=== PATIENT | male | born 1985 | race Caucasian/White ===

== ENCOUNTER 2016-09-14 11:05 | Inpatient (IN) | payer MEDICAID ==
[~2016-09-14] VITALS: Ht 193 cm; Wt 67.3 kg
[~2016-09-14 11:05] MED LIST: HUMALOG SC; INSUINJ37 SC
[2016-09-14] MEDS ORDERED: SODIUM CHLORIDE 0.9% 1,000 ML IVB ONE (11:13)
[2016-09-14] MEDS ORDERED: DEXTROSE (50%) 50ML SYRG IV PRN (11:15)
[2016-09-14] MEDS: ACCU-CHEK COMFORT CURVE STRIP VI SCH ×12 (11:27→23:11)
[2016-09-14] MEDS: InsuLIN R (HUMAN) 100 UNITS in SODIUM CHL 0.9% 99 ML IV SCH (12:01)
[2016-09-14] MEDS ORDERED: SODIUM CHLORIDE 0.9% 1,000 ML IV ONE ×3 (12:15→17:15)
[2016-09-14] MEDS ORDERED: EPOETIN ALFA 3,000 UNIT/1 ML VIAL IV ONE (12:15)
[2016-09-14 12:27] LABS: Hematocrit 48.8 % (41.0-53.0); Hemoglobin 15.7 g/dL (13.5-17.5); Mean Corpuscular Hemoglobin 29.9 pg (28.0-32.0); Mean Corpuscular Hgb Conc. 32.2 g/dL (32.0-36.0); Mean Corpuscular Volume 92.8 fL (80.0-100.0); Mean Platelet Volume 8.5 fL (7.4-10.4); Platelet Count (auto) 345 10^3/uL (140-450); Red Cell Distribution Width 12.7 % (11.6-16.0); SUSPECT VIEW TRANSMISSION; White Blood Cell 21.4 10^3/uL (4.4-10.8)
[2016-09-14 12:44] LABS: Metamyelocytes % 0; Myelocytes % 0; Promyelocytes % 0; Reactive Lymphocytes 0
[2016-09-14 12:45] LABS: Albumin 3.6 g/dL (3.4-5.0); Calcium 9.3 mg/dL (8.5-10.1); Potassium 5.2 mmol/L (3.5-5.1)
[2016-09-14 12:50] LABS: BUN/Creatinine Ratio 29.6; Bilirubin, Total 0.4 mg/dL (0.2-1.0); Magnesium 3.5 mg/dL (1.6-2.6); Total Protein 7.3 g/dL (6.4-8.2)
[2016-09-14 13:04] LABS: Platelet Estimate Adequate; RBC Morphology Normal
[2016-09-14 14:05] LABS: Urine RBC None Seen /hpf (0 - 3)
[2016-09-14 14:38] LABS: Urine Bilirubin Negative (Negative); Urine Color Yellow (Yellow); Urine Nitrite Negative (Negative); Urine Squamous Epithelial Cell FEW /hpf (<5); Urine Urobilinogen Normal (Negative)
[2016-09-14] MEDS ORDERED: SODIUM BICARBONATE 8.4 % INJ 50ML VIAL IV ONE ×2 (14:45)
[2016-09-14 14:46] LABS: Urine Blood 2+ /uL (Negative); Urine Glucose 4+ mg/dL (Normal); Urine Ketone 3+ (Negative)
[2016-09-14] MEDS ORDERED: ONDANSETRON HCL 4 MG/2 ML VIAL IV ONE (15:00)
[2016-09-14] MEDS ORDERED: ACETAMINOPHEN 325 MG TAB PO ONE ×2 (16:58→17:00)
[2016-09-14] MEDS ORDERED: cefTRIAXone 1GM/50ML D5W 50 ML IV ONE (18:00)
[2016-09-14] MEDS ORDERED: VANCOMYCIN PER PHARMACY 0 MG IV SCH (18:00)
[2016-09-14] MEDS ORDERED: NITROGLYCERIN 0.4 MG SL TAB SL PRN (18:00)
[2016-09-14] MEDS ORDERED: TEMAZEPAM 15 MG CAP PO PRN (18:00)
[2016-09-14] MEDS ORDERED: DILTIAZEM 125mg/125ml BAG KIT 125 ML IV SCH (18:00)
[2016-09-14] MEDS ORDERED: DILTIAZEM HCL 25 MG/5 ML VIAL IV ONE (18:00)
[2016-09-14] MEDS ORDERED: DOCUSATE SOD 100 MG CAP PO PRN (18:00)
[2016-09-14] MEDS ORDERED: ACETAMINOPHEN 325 MG TAB PO PRN (18:00)
[2016-09-14] MEDS ORDERED: ONDANSETRON HCL 4 MG/2 ML VIAL IV PRN (18:00)
[2016-09-14] MEDS ORDERED: MORPHINE SULF INJ 2 MG/ML SYRINGE 1ML IV PRN (18:00)
[2016-09-14] MEDS: MULTIPLE VITAMIN TAB PO SCH (18:53)
[2016-09-14] MEDS ORDERED: VANCOMYCIN 1GM/250ML D5W 250 ML IV ONE (20:00)
[2016-09-14] MEDS: FAMOTIDINE 20 MG TAB PO SCH (22:16)
[2016-09-15] VITALS: BP 120/83
[2016-09-15] MEDS: ACCU-CHEK COMFORT CURVE STRIP VI SCH ×24 (00:09→23:30)
[2016-09-15] MEDS ORDERED: D5W/SOD CHLO 0.9% 1,000 ML IV ONE (00:30)
[2016-09-15 01:36] LABS: Albumin 2.7 g/dL (3.4-5.0); BUN/Creatinine Ratio 35.7; Calcium 8.5 mg/dL (8.5-10.1); Potassium 3.1 mmol/L (3.5-5.1)
[2016-09-15 01:39] LABS: Bilirubin, Total 0.3 mg/dL (0.2-1.0); Total Protein 5.8 g/dL (6.4-8.2)
[2016-09-15] MEDS ORDERED: POTASSIUM CHL 20 Meq TABLET PO ONE ×2 (03:00→13:00)
[2016-09-15] MEDS ORDERED: POTASSIUM CHL 20MEQ/100ML 100 ML IV ONE (03:30)
[2016-09-15 04:11] LABS: SUSPECT VIEW TRANSMISSION
[2016-09-15 04:17] LABS: Hematocrit 42.8 % (41.0-53.0); Hemoglobin 14.9 g/dL (13.5-17.5); Mean Corpuscular Hemoglobin 30.3 pg (28.0-32.0); Mean Corpuscular Hgb Conc. 34.8 g/dL (32.0-36.0); Mean Corpuscular Volume 87.1 fL (80.0-100.0); Mean Platelet Volume 8.1 fL (7.4-10.4); Platelet Count (auto) 142 10^3/uL (140-450); Red Cell Distribution Width 12.8 % (11.6-16.0); White Blood Cell 9.1 10^3/uL (4.4-10.8)
[2016-09-15 04:21] LABS: Metamyelocytes % 0; Myelocytes % 0; Promyelocytes % 0; Reactive Lymphocytes 0
[2016-09-15 04:33] LABS: Albumin 2.8 g/dL (3.4-5.0); BUN/Creatinine Ratio 31.7; Calcium 8.4 mg/dL (8.5-10.1); Potassium 3.6 mmol/L (3.5-5.1)
[2016-09-15 04:41] LABS: Bilirubin, Total 0.3 mg/dL (0.2-1.0); Total Protein 6.1 g/dL (6.4-8.2)
[2016-09-15 05:09] LABS: Platelet Estimate Adequate; RBC Morphology Normal
[2016-09-15 07:40] LABS: Albumin 2.6 g/dL (3.4-5.0); Potassium 3.1 mmol/L (3.5-5.1)
[2016-09-15 07:44] LABS: BUN/Creatinine Ratio 34.4; Bilirubin, Total 0.2 mg/dL (0.2-1.0); Total Protein 5.6 g/dL (6.4-8.2)
[2016-09-15] MEDS: InsuLIN R (HUMAN) 100 UNITS in SODIUM CHL 0.9% 99 ML IV SCH ×6 (08:08→22:28)
[2016-09-15] MEDS: SODIUM CHLORIDE 0.9% 1,000 ML IV SCH ×5 (09:00→23:36)
[2016-09-15] MEDS: cefTRIAXone 1GM/50ML D5W 50 ML IV SCH (09:13)
[2016-09-15] MEDS: MULTIPLE VITAMIN TAB PO SCH (09:50)
[2016-09-15] MEDS: FAMOTIDINE 20 MG TAB PO SCH ×2 (09:51→22:44)
[2016-09-15] MEDS ORDERED: VANCOMYCIN 750 MG in D5W 5% 250 ML IV SCH (10:00)
[2016-09-15] MEDS: ENOXAPARIN SOD 60 MG/0.6 ML SYRINGE SC SCH ×2 (10:17→22:44)
[2016-09-15] MEDS: ASPirin 81 mg TAB PO SCH (10:31)
[2016-09-15] MEDS: POTASSIUM CHL 20MEQ/100ML 100 ML IV SCH ×4 (15:56→21:48)
[2016-09-15 16:35] LABS: BUN/Creatinine Ratio 29.1; Calcium 7.7 mg/dL (8.5-10.1)
[2016-09-15 16:37] LABS: Potassium 2.8 mmol/L (3.5-5.1)
[2016-09-15 18:15] VITALS: BP 130/71
[2016-09-15 18:27] VITALS: BP 130/71
[2016-09-15 20:00] VITALS: BP 117/62
[2016-09-15] MEDS: ATORVASTATIN 20 MG TAB PO SCH (22:44)
[2016-09-16] MEDS: ACCU-CHEK COMFORT CURVE STRIP VI SCH ×24 (00:30→23:04)
[2016-09-16 01:27] LABS: BUN/Creatinine Ratio 22.9; Calcium 7.8 mg/dL (8.5-10.1); Potassium 3.1 mmol/L (3.5-5.1)
[2016-09-16 01:47] LABS: Phosphorus 0.3 mg/dL (2.6-4.90)
[2016-09-16] MEDS ORDERED: NEUTRA-PHOS TABLET PO ONE (02:45)
[2016-09-16] MEDS ORDERED: POTASSIUM CHL 20MEQ/100ML 100 ML IV ONE ×2 (03:00→05:00)
[2016-09-16] MEDS: SODIUM CHLORIDE 0.9% 1,000 ML IV SCH ×5 (03:28→21:00)
[2016-09-16 04:13] VITALS: BP 125/74
[2016-09-16] MEDS ORDERED: POTASSIUM PHOSPHATE 22 MEQ in SODIUM CHL 0.9% 100 ML IV ONE (06:30)
[2016-09-16 08:00] VITALS: BP 132/83
[2016-09-16 09:41] LABS: Basophils # (auto) 0 uL; Basophils % (auto) 0.3 % (0.0-2.0); Eosinophils # (auto) 0 uL; Eosinophils % (auto) 0.2 % (0.0-7.0); Hematocrit 32.6 % (41.0-53.0); Lymphocytes # (auto) 0.8 uL; Lymphocytes % (auto) 17.2 % (10.0-50.0); Mean Corpuscular Hemoglobin 29.6 pg (28.0-32.0); Mean Corpuscular Hgb Conc. 33.6 g/dL (32.0-36.0); Mean Corpuscular Volume 88.1 fL (80.0-100.0); Mean Platelet Volume 7.2 fL (7.4-10.4); Monocytes # (auto) 0.3 uL; Monocytes % (auto) 6.7 % (0.0-12.0); Neutrophils # (auto) 3.4 uL; Neutrophils % (auto) 75.6 % (37.0-80.0); Platelet Count (auto) 129 10^3/uL (140-450); Red Cell Distribution Width 12.8 % (11.6-16.0); White Blood Cell 4.5 10^3/uL (4.4-10.8)
[2016-09-16] MEDS: ENOXAPARIN SOD 80 MG/0.8ML SYRINGE SC SCH ×2 (10:00→22:00)
[2016-09-16 10:06] LABS: Albumin 2.2 g/dL (3.4-5.0); BUN/Creatinine Ratio 25.3; Bilirubin, Total 0.5 mg/dL (0.2-1.0); Calcium 7.5 mg/dL (8.5-10.1); Magnesium 1.8 mg/dL (1.6-2.6); Total Protein 5.2 g/dL (6.4-8.2)
[2016-09-16 10:20] LABS: Phosphorus 0.8 mg/dL (2.6-4.90); Potassium 2.8 mmol/L (3.5-5.1)
[2016-09-16] MEDS: FAMOTIDINE 20 MG TAB PO SCH ×2 (10:37→22:59)
[2016-09-16] MEDS: MULTIPLE VITAMIN TAB PO SCH (10:37)
[2016-09-16] MEDS: ASPirin 81 mg TAB PO SCH (10:37)
[2016-09-16 12:00] VITALS: BP 125/73
[2016-09-16] MEDS: cefTRIAXone 1GM/50ML D5W 50 ML IV SCH (12:00)
[2016-09-16] MEDS: HYDROcodone-ACET 5/325MG TAB PO PRN (13:30)
[2016-09-16] MEDS ORDERED: SPIRONOLACTONE 25 MG TAB PO ONE (13:30)
[2016-09-16 14:25] LABS: BUN/Creatinine Ratio 25.7; Calcium 7.4 mg/dL (8.5-10.1)
[2016-09-16 14:50] LABS: Phosphorus 0.9 mg/dL (2.6-4.90); Potassium 2.8 mmol/L (3.5-5.1)
[2016-09-16 16:00] VITALS: BP 124/87
[2016-09-16] MEDS ORDERED: SODIUM PHOSPHATES 20 MEQ in SODIUM CHL 0.9% 100 ML IV ONE (16:00)
[2016-09-16] MEDS: MORPHINE SULF INJ 2 MG/ML SYRINGE 1ML IV PRN ×2 (16:26→20:26)
[2016-09-16] MEDS: POTASSIUM CHLORIDE 40 MEQ, LIDOCAINE 1% (LOCAL ANESTH.) 4 ML in SODIUM CHL 0.9% 250 ML IV SCH ×2 (17:17→20:00)
[2016-09-16 18:23] LABS: BUN/Creatinine Ratio 24.6; Phosphorus 1.4 mg/dL (2.6-4.90); Potassium 3.1 mmol/L (3.5-5.1)
[2016-09-16 20:15] VITALS: BP 135/85
[2016-09-16] MEDS: ATORVASTATIN 20 MG TAB PO SCH (22:59)
[2016-09-17 00:30] VITALS: BP 127/81
[2016-09-17] MEDS: SODIUM CHLORIDE 0.9% 1,000 ML IV SCH ×5 (01:10→17:02)
[2016-09-17] MEDS: ACCU-CHEK COMFORT CURVE STRIP VI SCH ×12 (01:10→22:00)
[2016-09-17 04:29] VITALS: BP 134/85
[2016-09-17] MEDS: MORPHINE SULF INJ 2 MG/ML SYRINGE 1ML IV PRN ×5 (04:58→21:39)
[2016-09-17 05:48] LABS: Basophils # (auto) 0 uL; Basophils % (auto) 0.3 % (0.0-2.0); Eosinophils # (auto) 0 uL; Eosinophils % (auto) 0.8 % (0.0-7.0); Hematocrit 32.3 % (41.0-53.0); Hemoglobin 11.1 g/dL (13.5-17.5); Lymphocytes # (auto) 1.3 uL; Lymphocytes % (auto) 22.5 % (10.0-50.0); Mean Corpuscular Hemoglobin 30.3 pg (28.0-32.0); Mean Corpuscular Hgb Conc. 34.5 g/dL (32.0-36.0); Mean Corpuscular Volume 87.9 fL (80.0-100.0); Mean Platelet Volume 7.1 fL (7.4-10.4); Monocytes # (auto) 0.4 uL; Monocytes % (auto) 7.6 % (0.0-12.0); Neutrophils # (auto) 4.1 uL; Neutrophils % (auto) 68.8 % (37.0-80.0); Platelet Count (auto) 105 10^3/uL (140-450); Red Cell Distribution Width 11.9 % (11.6-16.0); White Blood Cell 5.8 10^3/uL (4.4-10.8)
[2016-09-17 05:52] LABS: Phosphorus 1.3 mg/dL (2.6-4.90); Potassium 3.1 mmol/L (3.5-5.1)
[2016-09-17 08:00] VITALS: BP 129/80
[2016-09-17] MEDS: cefTRIAXone 1GM/50ML D5W 50 ML IV SCH (08:49)
[2016-09-17] MEDS ORDERED: SODIUM PHOSPHATES 20 MEQ in SODIUM CHL 0.9% 100 ML IV ONE (09:15)
[2016-09-17] MEDS ORDERED: DEXTROSE (50%) 50ML SYRG IV PRN (09:15)
[2016-09-17] MEDS ORDERED: INSULIN DETEMIR(LEVEMIR) 1unit/0.01ml Soln (100units/ml) SC ONE (09:15)
[2016-09-17] MEDS: POTASSIUM CHL 20MEQ/100ML 100 ML IV SCH ×3 (09:53→13:59)
[2016-09-17] MEDS: SPIRONOLACTONE 25 MG TAB PO SCH (09:55)
[2016-09-17] MEDS: MULTIPLE VITAMIN TAB PO SCH (09:55)
[2016-09-17] MEDS: ENOXAPARIN SOD 80 MG/0.8ML SYRINGE SC SCH ×2 (09:55→21:39)
[2016-09-17] MEDS: FAMOTIDINE 20 MG TAB PO SCH ×2 (09:55→21:38)
[2016-09-17] MEDS: ASPirin 81 mg TAB PO SCH (09:55)
[2016-09-17] MEDS: InsuLIN REG 1unit/0.01ml Soln (100units/ml) SC SCH ×2 (11:51→18:47)
[2016-09-17] MEDS: HYDROcodone-ACET 5/325MG TAB PO PRN ×2 (11:55→18:49)
[2016-09-17 12:00] VITALS: BP 120/67
[2016-09-17 16:00] VITALS: BP 138/87
[2016-09-17 18:08] LABS: BUN/Creatinine Ratio 21.2; Calcium 8.4 mg/dL (8.5-10.1); Phosphorus 2.2 mg/dL (2.6-4.90); Potassium 3.3 mmol/L (3.5-5.1)
[2016-09-17] MEDS: ATORVASTATIN 20 MG TAB PO SCH (21:38)
[2016-09-17] MEDS ORDERED: InsuLIN REG 1unit/0.01ml Soln (100units/ml) SC SCH (22:00)
[2016-09-17] MEDS: INSULIN DETEMIR(LEVEMIR) 1unit/0.01ml Soln (100units/ml) SC SCH (23:18)
[2016-09-18] VITALS: BP 129/77
[2016-09-18] MEDS: SODIUM CHLORIDE 0.9% 1,000 ML IV SCH ×2 (01:36→09:15)
[2016-09-18] MEDS: MORPHINE SULF INJ 2 MG/ML SYRINGE 1ML IV PRN ×3 (02:12→11:52)
[2016-09-18] MEDS: InsuLIN REG 1unit/0.01ml Soln (100units/ml) SC SCH ×2 (06:51→11:39)
[2016-09-18] MEDS: ACCU-CHEK COMFORT CURVE STRIP VI SCH ×2 (07:01→11:34)
[2016-09-18] MEDS: cefTRIAXone 1GM/50ML D5W 50 ML IV SCH (08:36)
[2016-09-18] MEDS: SPIRONOLACTONE 25 MG TAB PO SCH (08:46)
[2016-09-18] MEDS: ASPirin 81 mg TAB PO SCH (08:46)
[2016-09-18] MEDS: MULTIPLE VITAMIN TAB PO SCH (08:46)
[2016-09-18] MEDS: FAMOTIDINE 20 MG TAB PO SCH (08:46)
[2016-09-18] MEDS: HYDROcodone-ACET 5/325MG TAB PO PRN (08:54)
[2016-09-18 09:00] VITALS: BP 139/89
[2016-09-18] MEDS: ENOXAPARIN SOD 80 MG/0.8ML SYRINGE SC SCH (10:00)
[2016-09-18] MEDS: INSULIN DETEMIR(LEVEMIR) 1unit/0.01ml Soln (100units/ml) SC SCH (10:25)
[2016-09-18 11:02] VITALS: BP 132/52
[2016-09-18 12:14] LABS: BUN/Creatinine Ratio 19.1; Calcium 8.4 mg/dL (8.5-10.1); Potassium 3.1 mmol/L (3.5-5.1)
[2016-09-18 13:00] VITALS: BP 139/87
[2016-09-18] MEDS ORDERED: POTASSIUM CHL 20 Meq TABLET PO ONE (14:30)
[2016-09-18 15:12] VITALS: BP 132/52
== END 2016-09-18 15:12 | disposition home or self-care (01) | DRG 420 ==
LOC: EDBD 11:05 → ER 11:09 → TELE 11:10 → DOU IN ICU 09-15 18:09 → TELE-EAST 09-18 01:30
PROVIDERS: ADMIT Internal Medicine; ATTEND Internal Medicine
DX: E13.10 Other specified diabetes mellitus with ketoacidosis without coma (principal); I21.4 Non-ST elevation (NSTEMI) myocardial infarction; E87.0 Hyperosmolality and hypernatremia; N17.9 Acute kidney failure, unspecified; I48.92 Unspecified atrial flutter; N18.3 Chronic kidney disease, stage 3 (moderate); E87.1 Hypo-osmolality and hyponatremia; E86.0 Dehydration; I48.91 Unspecified atrial fibrillation; D72.829 Elevated white blood cell count, unspecified; F17.210 Nicotine dependence, cigarettes, uncomplicated; F32.9 Major depressive disorder, single episode, unspecified; F41.9 Anxiety disorder, unspecified; Z91.19 Patient's noncompliance with other medical treatment and regimen
CPT/HCPCS: 36415; 36600; 71010; 80048; 80053; 81001; 82805; 82962; 83036; 83605; 83735; 84100; 84484; 85007; 85025; 85027; 87040; 87070; 87081; 87880; 93005; 96361; 96374; 96375; 99291; J0696; J1815; J2001; J2405; J3480; J7042; J7060

== ENCOUNTER 2016-10-14 09:16 | Inpatient (IN) | payer MEDICAID ==
[~2016-10-14] VITALS: Ht 190.5 cm; Wt 65.8 kg
[~2016-10-14 09:16] MED LIST changes: -INSUINJ37 SC
[2016-10-14] MEDS ORDERED: InsuLIN REG 1unit/0.01ml Soln (100units/ml) IV ONE (09:45)
[2016-10-14] MEDS ORDERED: SODIUM CHLORIDE 0.9% 1,000 ML IV ONE ×2 (09:45→10:45)
[2016-10-14 10:42] LABS: Lactic Acid 6.8 mmol/L (0.4-2.0)
[2016-10-14] MEDS ORDERED: ONDANSETRON HCL 4 MG/2 ML VIAL IV ONE (10:45)
[2016-10-14] MEDS ORDERED: MORPHINE SULFATE 4 MG/ML SYRG IV ONE (10:45)
[2016-10-14 11:10] LABS: DEFINITIVE VIEW TRANSMISSION; Hematocrit 44.9 % (41.0-53.0); Hemoglobin 14.4 g/dL (13.5-17.5); Mean Corpuscular Hemoglobin 29.7 pg (28.0-32.0); Mean Corpuscular Hgb Conc. 32.1 g/dL (32.0-36.0); Mean Corpuscular Volume 92.7 fL (80.0-100.0); Platelet Count (auto) 485 10^3/uL (140-450); Red Cell Distribution Width 13.3 % (11.6-16.0); SUSPECT VIEW TRANSMISSION
[2016-10-14 11:17] LABS: REFLEX LACTIC ACID YES OR NO YES
[2016-10-14 11:20] LABS: White Blood Cell 36.2 10^3/uL (4.4-10.8)
[2016-10-14 11:21] LABS: Metamyelocytes % 0; Myelocytes % 0; Promyelocytes % 0; Reactive Lymphocytes 0
[2016-10-14 11:46] LABS: Urine RBC None Seen /hpf (0 - 3)
[2016-10-14 11:57] LABS: Urine Bilirubin Negative (Negative); Urine Blood Negative /uL (Negative); Urine Color Colorless (Yellow); Urine Mucus FEW (None Seen); Urine Nitrite Negative (Negative); Urine Urobilinogen Normal (Negative)
[2016-10-14 12:27] LABS: Urine Glucose 4+ mg/dL (Normal); Urine Ketone 4+ (Negative)
[2016-10-14 13:20] LABS: Giant Platelets Few; Platelet Estimate Increased
[2016-10-14 13:21] LABS: Stomatocytes Few
[2016-10-14 13:28] LABS: Lactic Acid 4.3 mmol/L (0.4-2.0)
[2016-10-14] MEDS ORDERED: InsuLIN R (HUMAN) 100 UNITS in SODIUM CHL 0.9% 99 ML IV SCH ×2 (13:55→15:34)
[2016-10-14] MEDS ORDERED: SODIUM CHLORIDE 0.9% 1,000 ML IV SCH ×4 (13:55→19:55)
[2016-10-14] MEDS ORDERED: DEXTROSE (50%) 50ML SYRG IV PRN ×2 (14:00→15:45)
[2016-10-14] MEDS ORDERED: cefTRIAXone 1GM/50ML D5W 50 ML IV ONE (14:00)
[2016-10-14 14:02] LABS: REFLEX LACTIC ACID YES OR NO YES
[2016-10-14] MEDS: ACCU-CHEK COMFORT CURVE STRIP VI SCH ×10 (14:21→23:00)
[2016-10-14 14:35] LABS: Magnesium 2.5 mg/dL (1.6-2.6); Phosphorus 8.2 mg/dL (2.5-4.90)
[2016-10-14 14:58] LABS: Anion Gap 28 (5-15); Chloride 86 mmol/L (98-107)
[2016-10-14 14:59] LABS: Alkaline Phosphatase 110 U/L (45-117); Aspartate Aminotransferase 24 U/L (15-37); Bilirubin, Total 0.5 mg/dL (0.2-1.0); Blood Urea Nitrogen 42 mg/dL (7-18); Calcium 8.2 mg/dL (8.5-10.1); GFR African American 53 mL/min; GFR Non-African American 44 mL/min; Total Protein 7.9 g/dL (6.4-8.2)
[2016-10-14 15:00] LABS: Albumin 3.7 g/dL (3.4-5.0)
[2016-10-14 15:09] LABS: Potassium 5.6 mmol/L (3.5-5.1); Sodium 118 mmol/L (136-145)
[2016-10-14 15:10] LABS: Carbon Dioxide 4 mmol/L (21-32); Glucose > 500 mg/dL (74-106)
[2016-10-14] MEDS ORDERED: NITROGLYCERIN 0.4 MG SL TAB SL PRN (15:45)
[2016-10-14] MEDS ORDERED: TEMAZEPAM 15 MG CAP PO PRN (15:45)
[2016-10-14] MEDS ORDERED: VANCOMYCIN PER PHARMACY 0 MG IV SCH (15:45)
[2016-10-14] MEDS ORDERED: HYDROcodone-ACET 5/325MG TAB PO PRN (15:45)
[2016-10-14] MEDS ORDERED: HYDROmorphone HCL 2 MG/ML VL IV ONE (15:45)
[2016-10-14] MEDS ORDERED: MORPHINE SULF INJ 2 MG/ML SYRINGE 1ML IV PRN (15:45)
[2016-10-14] MEDS ORDERED: PROMETHAZINE HCL 25 MG/ML 1ML IV ONE (15:45)
[2016-10-14] MEDS ORDERED: ACETAMINOPHEN 325 MG TAB PO PRN (15:45)
[2016-10-14] MEDS ORDERED: ONDANSETRON HCL 4 MG/2 ML VIAL IV PRN (15:45)
[2016-10-14] MEDS ORDERED: DOCUSATE SOD 100 MG CAP PO PRN (15:45)
[2016-10-14 16:35] LABS: Magnesium 2.3 mg/dL (1.6-2.6); Phosphorus 4.6 mg/dL (2.5-4.90)
[2016-10-14 16:37] LABS: BUN/Creatinine Ratio 24.1; Calcium 7.7 mg/dL (8.5-10.1)
[2016-10-14] MEDS: SODIUM CHLORIDE 0.9% 1,000 ML IV SCH ×3 (16:44→22:00)
[2016-10-14] MEDS: MULTIPLE VITAMIN TAB PO SCH (16:46)
[2016-10-14 17:10] LABS: REFLEX LACTIC ACID YES OR NO YES
[2016-10-14 17:30] LABS: Potassium 5.9 mmol/L (3.5-5.1)
[2016-10-14] MEDS ORDERED: SODIUM BICARBONATE 8.4 % INJ 50ML VIAL IV ONE (17:45)
[2016-10-14] MEDS: VANCOMYCIN 1,250 MG in D5W 5% 250 ML IV SCH (18:00)
[2016-10-14] MEDS ORDERED: INSLISPI SC (18:50)
[2016-10-14 19:00] VITALS: BP 124/67
[2016-10-14 19:30] VITALS: BP 112/58
[2016-10-14 20:00] VITALS: BP 119/62
[2016-10-14 20:30] VITALS: BP 104/46
[2016-10-14 22:00] VITALS: BP 105/60
[2016-10-14] MEDS: FAMOTIDINE 20 MG TAB PO SCH (22:00)
[2016-10-14 22:18] LABS: BUN/Creatinine Ratio 24.1
[2016-10-14 23:00] VITALS: BP 112/60
[2016-10-15] VITALS (11 sets, daily range): BP systolic 95–131; BP diastolic 43–85
[2016-10-15] MEDS: ACCU-CHEK COMFORT CURVE STRIP VI SCH ×7 (00:03→15:30)
[2016-10-15 00:12] LABS: B-Type Natriuretic Peptide 42.9 pg/mL (0-100)
[2016-10-15 00:13] LABS: Temperature: 21.6 C (20.0-25.0)
[2016-10-15] MEDS ORDERED: DEXTROSE (50%) 50ML SYRG IV PRN (03:00)
[2016-10-15] MEDS: InsuLIN REG 1unit/0.01ml Soln (100units/ml) SC SCH ×4 (03:23→15:31)
[2016-10-15] MEDS: MORPHINE SULF INJ 2 MG/ML SYRINGE 1ML IV PRN ×3 (03:26→14:34)
[2016-10-15 03:42] LABS: Basophils # (auto) 0.2 uL; Eosinophils # (auto) 0 uL; Hemoglobin 12.6 g/dL (13.5-17.5); Lymphocytes # (auto) 1.4 uL; Lymphocytes % (auto) 8.1 % (10.0-50.0); Mean Corpuscular Hemoglobin 29.1 pg (28.0-32.0); Mean Corpuscular Hgb Conc. 32.3 g/dL (32.0-36.0); Mean Corpuscular Volume 89.9 fL (80.0-100.0); Mean Platelet Volume 7.5 fL (7.4-10.4); Monocytes # (auto) 0.9 uL; Monocytes % (auto) 5.2 % (0.0-12.0); Neutrophils # (auto) 14.5 uL; Neutrophils % (auto) 85.7 % (37.0-80.0); Platelet Count (auto) 315 10^3/uL (140-450); Red Cell Distribution Width 13.8 % (11.6-16.0); White Blood Cell 16.9 10^3/uL (4.4-10.8)
[2016-10-15 04:01] LABS: Albumin 3.4 g/dL (3.4-5.0); Calcium 8.1 mg/dL (8.5-10.1); Potassium 3.6 mmol/L (3.5-5.1)
[2016-10-15 04:04] LABS: Bilirubin, Total 0.4 mg/dL (0.2-1.0); Total Protein 6.8 g/dL (6.4-8.2)
[2016-10-15] MEDS: SODIUM CHLORIDE 0.9% 1,000 ML IV SCH ×2 (04:14→10:54)
[2016-10-15] MEDS: VANCOMYCIN 1,250 MG in D5W 5% 250 ML IV SCH (06:11)
[2016-10-15] MEDS: FAMOTIDINE 20 MG TAB PO SCH (08:51)
[2016-10-15] MEDS: MULTIPLE VITAMIN TAB PO SCH (08:51)
[2016-10-15] MEDS ORDERED: cefTRIAXone 1GM/50ML D5W 50 ML IV SCH (09:00)
[2016-10-15 10:50] LABS: BUN/Creatinine Ratio 16.5; Potassium 3.6 mmol/L (3.5-5.1)
[2016-10-15] MEDS ORDERED: INSULIN DETEMIR(LEVEMIR) 1unit/0.01ml Soln (100units/ml) SC ONE ×2 (14:15)
== END 2016-10-15 18:15 | disposition home or self-care (01) | DRG 720 ==
LOC: EDAGE 09:16 → EDUNIT# 09:16 → ER 09:16 → TELE 09:17 → ICU WEST 18:18
PROVIDERS: ADMIT Internal Medicine; ATTEND Hospitalist
DX: A41.9 Sepsis, unspecified organism (principal); E10.10 Type 1 diabetes mellitus with ketoacidosis without coma; E10.21 Type 1 diabetes mellitus with diabetic nephropathy; E87.1 Hypo-osmolality and hyponatremia; E87.5 Hyperkalemia; E83.51 Hypocalcemia; N18.3 Chronic kidney disease, stage 3 (moderate); E86.0 Dehydration; F32.9 Major depressive disorder, single episode, unspecified; E10.22 Type 1 diabetes mellitus with diabetic chronic kidney disease; F17.210 Nicotine dependence, cigarettes, uncomplicated; Z91.14 Patient's other noncompliance with medication regimen; F41.9 Anxiety disorder, unspecified
CPT/HCPCS: 36415; 36600; 71010; 74176; 80048; 80053; 81001; 82010; 82805; 82962; 83036; 83605; 83735; 83880; 83930; 84100; 85007; 85025; 85027; 87040; 87081; 87086; 93005; 96361; 96365; 96367; 96375; 99291; J0696; J1815; J2405; J7060

== ENCOUNTER 2016-10-19 03:28 | Emergency (ER) | payer MEDICAID ==
[~2016-10-19] VITALS: Ht 193 cm; Wt 72.6 kg
[~2016-10-19 03:28] MED LIST changes: -HUMALOG SC; +INSLISPI SC
[2016-10-19 04:11] LABS: Urine Bilirubin Negative (Negative); Urine Blood Negative /uL (Negative); Urine Color Yellow (Yellow); Urine Nitrite Negative (Negative); Urine RBC <1 /hpf (0 - 3); Urine Urobilinogen Normal (Negative)
[2016-10-19 04:12] LABS: Urine Glucose 4+ mg/dL (Normal); Urine Ketone Trace (Negative)
[2016-10-19 04:25] LABS: Basophils # (auto) 0 uL; Basophils % (auto) 0.7 % (0.0-2.0); Eosinophils # (auto) 0 uL; Hematocrit 32.9 % (41.0-53.0); Hemoglobin 10.7 g/dL (13.5-17.5); Lymphocytes # (auto) 1.4 uL; Lymphocytes % (auto) 39.1 % (10.0-50.0); Mean Corpuscular Hemoglobin 29.3 pg (28.0-32.0); Mean Corpuscular Hgb Conc. 32.5 g/dL (32.0-36.0); Mean Corpuscular Volume 90.2 fL (80.0-100.0); Mean Platelet Volume 7.2 fL (7.4-10.4); Monocytes # (auto) 0.2 uL; Monocytes % (auto) 6.5 % (0.0-12.0); Neutrophils # (auto) 1.9 uL; Neutrophils % (auto) 52.7 % (37.0-80.0); Platelet Count (auto) 276 10^3/uL (140-450); Red Cell Distribution Width 14.2 % (11.6-16.0); White Blood Cell 3.6 10^3/uL (4.4-10.8)
[2016-10-19 04:37] LABS: Albumin 3.2 g/dL (3.4-5.0); Calcium 8.2 mg/dL (8.5-10.1); Potassium 3.3 mmol/L (3.5-5.1)
[2016-10-19 04:40] LABS: Bilirubin, Total 0.2 mg/dL (0.2-1.0); Total Protein 6.3 g/dL (6.4-8.2)
[2016-10-19] MEDS ORDERED: SODIUM CHLORIDE 0.9% 2,000 ML IV ONE (05:30)
[2016-10-19] MEDS ORDERED: POTASSIUM CHL 20 Meq TABLET PO ONE (05:45)
[2016-10-19 07:00] VITALS: BP 153/92
== END 2016-10-19 07:12 | disposition home or self-care (01) ==
LOC: ER 03:28
DX: E10.65 Type 1 diabetes mellitus with hyperglycemia (principal); F17.210 Nicotine dependence, cigarettes, uncomplicated; F15.10 Other stimulant abuse, uncomplicated
CPT/HCPCS: 36415; 70450; 80053; 81001; 82010; 82962; 85025; 93005; 96360; 99285; G0434; J7030

== ENCOUNTER 2017-01-21 20:15 | Emergency (ER) | payer MEDICAID ==
[~2017-01-21] VITALS: Ht 193 cm; Wt 74.8 kg
[2017-01-21 21:13] LABS: Basophils # (auto) 0 uL; Basophils % (auto) 0.7 % (0.0-2.0); Eosinophils # (auto) 0.1 uL; Eosinophils % (auto) 2.1 % (0.0-7.0); Hemoglobin 14.5 g/dL (13.5-17.5); Lymphocytes # (auto) 3.1 uL; Lymphocytes % (auto) 48.4 % (10.0-50.0); Mean Corpuscular Hemoglobin 29.6 pg (28.0-32.0); Mean Corpuscular Hgb Conc. 33.7 g/dL (32.0-36.0); Mean Corpuscular Volume 87.8 fL (80.0-100.0); Mean Platelet Volume 7.5 fL (7.4-10.4); Monocytes # (auto) 0.5 uL; Monocytes % (auto) 7.8 % (0.0-12.0); Neutrophils # (auto) 2.6 uL; Platelet Count (auto) 441 10^3/uL (140-450); Red Cell Distribution Width 11.9 % (11.6-16.0); White Blood Cell 6.3 10^3/uL (4.4-10.8)
[2017-01-21 21:22] LABS: INR 0.92 (0.9-1.15); Partial Thromboplastin Time 26.1 sec (22.64-33.71); Prothrombin Time 9.9 sec (9.37-12.3)
[2017-01-21 21:40] LABS: Albumin 4.1 g/dL (3.4-5.0); Alkaline Phosphatase 80 U/L (45-117); Anion Gap 13 (5-15); Aspartate Aminotransferase 10 U/L (15-37); BUN/Creatinine Ratio 22.1; Bilirubin, Total 0.3 mg/dL (0.2-1.0); Blood Urea Nitrogen 19 mg/dL (7-18); Calcium 9.4 mg/dL (8.5-10.1); Carbon Dioxide 23 mmol/L (21-32); Chloride 105 mmol/L (98-107); GFR African American 133 mL/min; GFR Non-African American 110 mL/min; Glucose 135 mg/dL (74-106); Magnesium 2.2 mg/dL (1.6-2.6); Potassium 3.7 mmol/L (3.5-5.1); Sodium 141 mmol/L (136-145); Total Protein 7.7 g/dL (6.4-8.2)
[2017-01-21 22:31] LABS: Urine Bilirubin Negative (Negative); Urine Blood Negative /uL (Negative); Urine Color Yellow (Yellow); Urine Glucose 4+ mg/dL (Normal); Urine Ketone TRACE (Negative); Urine Mucus FEW (None Seen); Urine Nitrite Negative (Negative); Urine RBC <1 /hpf (0 - 3); Urine Sperm PRESENT /hpf (None Seen); Urine Squamous Epithelial Cell FEW /hpf (<5); Urine Urobilinogen Normal (Negative); Urine pH 5.5 (5.0-8.0)
[2017-01-22] MEDS ORDERED: SODIUM CHLORIDE 0.9% 1,000 ML IV ONE ×2 (01:00→02:30)
[2017-01-22] MEDS ORDERED: ALUM & MAG HYDROX-SIMETH LIQ(MAALOX) 30 ML PO ONE (01:15)
[2017-01-22] MEDS ORDERED: DONNATAL 5ml ORAL Elix (BELLADONNA ALK-PHENOBARB) PO ONE (01:15)
[2017-01-22] MEDS ORDERED: LIDOCAINE VISCOUS 2% 15ML UD PO ONE (01:15)
[2017-01-22] MEDS ORDERED: MAGNESIUM CITRATE SOLUTION 300 ML BTL PO ONE (02:30)
[2017-01-22] MEDS ORDERED: HYDROmorphone HCL 2 MG/ML VL IV ONE (02:30)
[2017-01-22] MEDS ORDERED: ONDANSETRON HCL 4 MG/2 ML VIAL IV ONE (02:30)
[2017-01-22 03:33] VITALS: BP 110/72
== END 2017-01-22 04:06 | disposition home or self-care (01) ==
LOC: ER 20:24
DX: K59.00 Constipation, unspecified (principal); E86.0 Dehydration; R07.9 Chest pain, unspecified; E10.9 Type 1 diabetes mellitus without complications; F17.210 Nicotine dependence, cigarettes, uncomplicated; F15.10 Other stimulant abuse, uncomplicated
CPT/HCPCS: 36415; 71020; 74000; 80053; 80307; 81001; 82962; 83735; 84484; 85025; 85610; 85730; 93005; 96361; 96374; 96375; 99285; J1170; J2405; J7030

== ENCOUNTER 2017-01-25 20:27 | Inpatient (IN) | payer MEDICAID ==
[~2017-01-25] VITALS: Ht 190.5 cm; Wt 71.0 kg
[2017-01-25 21:16] LABS: Urine RBC None Seen /hpf (0 - 3)
[2017-01-25 21:17] LABS: Urine Bilirubin Negative (Negative); Urine Blood Negative /uL (Negative); Urine Color Yellow (Yellow); Urine Nitrite Negative (Negative); Urine Urobilinogen Normal (Negative); Urine pH 5.5 (5.0-8.0)
[2017-01-25 21:18] LABS: Basophils # (auto) 0 uL; Basophils % (auto) 0.4 % (0.0-2.0); Eosinophils # (auto) 0.4 uL; Eosinophils % (auto) 5.9 % (0.0-7.0); Hematocrit 47.2 % (41.0-53.0); Hemoglobin 16.2 g/dL (13.5-17.5); Lymphocytes # (auto) 2.3 uL; Mean Corpuscular Hemoglobin 29.8 pg (28.0-32.0); Mean Corpuscular Hgb Conc. 34.3 g/dL (32.0-36.0); Mean Corpuscular Volume 86.9 fL (80.0-100.0); Mean Platelet Volume 7.5 fL (7.4-10.4); Monocytes # (auto) 0.4 uL; Monocytes % (auto) 6.4 % (0.0-12.0); Neutrophils # (auto) 3.4 uL; Neutrophils % (auto) 52.3 % (37.0-80.0); Platelet Count (auto) 442 10^3/uL (140-450); Red Cell Distribution Width 12.1 % (11.6-16.0); White Blood Cell 6.6 10^3/uL (4.4-10.8)
[2017-01-25 21:18] LABS: Urine Glucose 4+ mg/dL (Normal); Urine Ketone 3+ (Negative)
[2017-01-25 21:49] LABS: Albumin 4.1 g/dL (3.4-5.0); Alkaline Phosphatase 85 U/L (45-117); Anion Gap 14 (5-15); Aspartate Aminotransferase 14 U/L (15-37); BUN/Creatinine Ratio 16.3; Bilirubin, Total 0.8 mg/dL (0.2-1.0); Blood Urea Nitrogen 16 mg/dL (7-18); Calcium 9.5 mg/dL (8.5-10.1); Carbon Dioxide 22 mmol/L (21-32); Chloride 97 mmol/L (98-107); GFR African American 115 mL/min; GFR Non-African American 95 mL/min; Potassium 4.3 mmol/L (3.5-5.1); Sodium 133 mmol/L (136-145); Total Protein 8.1 g/dL (6.4-8.2)
[2017-01-25 22:04] LABS: Glucose 449 mg/dL (74-106)
[2017-01-26] MEDS ORDERED: ONDANSETRON HCL 4 MG/2 ML VIAL ONE (00:27)
[2017-01-26] MEDS ORDERED: MORPHINE SULFATE 4 MG/ML SYRG ONE (00:27)
[2017-01-26] MEDS ORDERED: ONDANSETRON HCL 4 MG/2 ML VIAL IV ONE (02:15)
[2017-01-26] MEDS ORDERED: MORPHINE SULFATE 4 MG/ML SYRG IV ONE (02:15)
[2017-01-26] MEDS ORDERED: SODIUM CHLORIDE 0.9% 1,000 ML IV ONE (02:30)
[2017-01-26] MEDS ORDERED: HYDROmorphone HCL 2 MG/ML VL IV ONE ×2 (04:00→08:45)
[2017-01-26] MEDS ORDERED: NITROGLYCERIN 0.4 MG SL TAB SL PRN (09:30)
[2017-01-26] MEDS ORDERED: DEXTROSE (50%) 50ML SYRG IV PRN (09:30)
[2017-01-26] MEDS ORDERED: ACETAMINOPHEN 325 MG TAB PO PRN (09:30)
[2017-01-26] MEDS ORDERED: INSULIN DETEMIR(LEVEMIR) 1unit/0.01ml Soln (100units/ml) SC ONE (09:30)
[2017-01-26] MEDS ORDERED: MORPHINE SULF INJ 2 MG/ML SYRINGE 1ML IV PRN (09:30)
[2017-01-26] MEDS: SODIUM CHLORIDE 0.9% 1,000 ML IV SCH ×2 (10:00→17:38)
[2017-01-26] MEDS ORDERED: ADDERALL PO SCH (10:00)
[2017-01-26] MEDS: ADDERALL PO SCH (10:00)
[2017-01-26] MEDS: MULTIPLE VITAMIN TAB PO SCH (10:15)
[2017-01-26] MEDS: FAMOTIDINE 20 MG TAB PO SCH ×2 (10:15→22:25)
[2017-01-26] MEDS ORDERED: AMPH20TA20 PO (10:28)
[2017-01-26] MEDS ORDERED: GABA300C8 PO (10:28)
[2017-01-26] MEDS: ACCU-CHEK COMFORT CURVE STRIP VI SCH ×3 (11:52→22:26)
[2017-01-26] MEDS: InsuLIN REG 1unit/0.01ml Soln (100units/ml) SC SCH ×3 (11:59→22:32)
[2017-01-26] MEDS: HYDROcodone-ACET 5/325MG TAB PO PRN ×2 (12:03→21:10)
[2017-01-26] MEDS: NovoloG Insulin 1unit/0.01ml Soln (100units/ml) SC SCH ×2 (12:18→17:37)
[2017-01-26 12:36] VITALS: BP 118/72
[2017-01-26 13:00] VITALS: BP 119/77
[2017-01-26] MEDS: MORPHINE SULF INJ 2 MG/ML SYRINGE 1ML IV PRN ×3 (13:18→22:33)
[2017-01-26] MEDS: GABAPENTIN 300 MG CAP PO SCH ×2 (13:25→22:25)
[2017-01-26 17:00] VITALS: BP 113/61
[2017-01-26 22:00] VITALS: BP 118/75
[2017-01-26] MEDS: ONDANSETRON HCL 4 MG/2 ML VIAL IV PRN (22:32)
[2017-01-27] MEDS: TEMAZEPAM 15 MG CAP PO PRN ×2 (00:56→23:52)
[2017-01-27] MEDS: SODIUM CHLORIDE 0.9% 1,000 ML IV SCH ×3 (04:35→17:18)
[2017-01-27 05:00] VITALS: BP 107/70
[2017-01-27] MEDS: GABAPENTIN 300 MG CAP PO SCH ×3 (06:26→22:36)
[2017-01-27 06:33] LABS: Basophils # (auto) 0 uL; Basophils % (auto) 0.6 % (0.0-2.0); Eosinophils # (auto) 0.3 uL; Eosinophils % (auto) 5.7 % (0.0-7.0); Hematocrit 43.1 % (41.0-53.0); Hemoglobin 14.9 g/dL (13.5-17.5); Lymphocytes # (auto) 1.7 uL; Lymphocytes % (auto) 29.9 % (10.0-50.0); Mean Corpuscular Hgb Conc. 34.5 g/dL (32.0-36.0); Mean Corpuscular Volume 87.1 fL (80.0-100.0); Mean Platelet Volume 7.4 fL (7.4-10.4); Monocytes # (auto) 0.4 uL; Monocytes % (auto) 7.2 % (0.0-12.0); Neutrophils # (auto) 3.2 uL; Neutrophils % (auto) 56.6 % (37.0-80.0); Platelet Count (auto) 400 10^3/uL (140-450); Red Cell Distribution Width 11.8 % (11.6-16.0); White Blood Cell 5.7 10^3/uL (4.4-10.8)
[2017-01-27] MEDS: ACCU-CHEK COMFORT CURVE STRIP VI SCH ×4 (06:39→22:00)
[2017-01-27] MEDS: InsuLIN REG 1unit/0.01ml Soln (100units/ml) SC SCH ×4 (06:39→22:48)
[2017-01-27] MEDS: ONDANSETRON HCL 4 MG/2 ML VIAL IV PRN ×2 (06:40→22:39)
[2017-01-27] MEDS: MORPHINE SULF INJ 2 MG/ML SYRINGE 1ML IV PRN (06:40)
[2017-01-27] MEDS: INSULIN DETEMIR(LEVEMIR) 1unit/0.01ml Soln (100units/ml) SC SCH (06:47)
[2017-01-27 07:00] LABS: Potassium 3.5 mmol/L (3.5-5.1)
[2017-01-27 07:06] LABS: Albumin 3.8 g/dL (3.4-5.0); BUN/Creatinine Ratio 17.5; Calcium 9.2 mg/dL (8.5-10.1)
[2017-01-27 07:09] LABS: Bilirubin, Total 0.4 mg/dL (0.2-1.0); Total Protein 7.1 g/dL (6.4-8.2)
[2017-01-27] MEDS: NovoloG Insulin 1unit/0.01ml Soln (100units/ml) SC SCH ×2 (07:16→11:32)
[2017-01-27 08:00] VITALS: BP 97/60
[2017-01-27 08:51] VITALS: BP 97/60
[2017-01-27] MEDS: ADDERALL PO SCH (10:00)
[2017-01-27] MEDS: FAMOTIDINE 20 MG TAB PO SCH ×2 (10:31→22:37)
[2017-01-27] MEDS: MULTIPLE VITAMIN TAB PO SCH (10:31)
[2017-01-27] MEDS: HYDROmorphone HCL 2 MG/ML VL IV PRN ×4 (10:32→22:39)
[2017-01-27 12:39] VITALS: BP 120/82
[2017-01-27 16:49] VITALS: BP 126/79
[2017-01-27] MEDS: HYDROcodone-ACET 5/325MG TAB PO PRN (21:28)
[2017-01-27 22:00] VITALS: BP 121/75
[2017-01-28] MEDS: HYDROmorphone HCL 2 MG/ML VL IV PRN ×5 (02:40→21:16)
[2017-01-28] MEDS: ONDANSETRON HCL 4 MG/2 ML VIAL IV PRN ×2 (02:40→21:15)
[2017-01-28] MEDS: SODIUM CHLORIDE 0.9% 1,000 ML IV SCH ×3 (05:23→20:37)
[2017-01-28 05:30] VITALS: BP 119/68
[2017-01-28 05:41] LABS: Basophils # (auto) 0 uL; Basophils % (auto) 0.7 % (0.0-2.0); Eosinophils # (auto) 0.3 uL; Hematocrit 38.6 % (41.0-53.0); Lymphocytes # (auto) 1.7 uL; Lymphocytes % (auto) 43.3 % (10.0-50.0); Mean Corpuscular Hemoglobin 29.9 pg (28.0-32.0); Mean Corpuscular Hgb Conc. 33.7 g/dL (32.0-36.0); Mean Corpuscular Volume 88.5 fL (80.0-100.0); Mean Platelet Volume 7.7 fL (7.4-10.4); Monocytes # (auto) 0.3 uL; Monocytes % (auto) 7.3 % (0.0-12.0); Neutrophils # (auto) 1.7 uL; Neutrophils % (auto) 41.7 % (37.0-80.0); Platelet Count (auto) 318 10^3/uL (140-450); Red Cell Distribution Width 11.7 % (11.6-16.0)
[2017-01-28 05:53] LABS: Albumin 3.1 g/dL (3.4-5.0); Alkaline Phosphatase 63 U/L (45-117); Anion Gap 8 (5-15); Aspartate Aminotransferase 15 U/L (15-37); BUN/Creatinine Ratio 11.7; Bilirubin, Total 0.3 mg/dL (0.2-1.0); Blood Urea Nitrogen 9 mg/dL (7-18); Carbon Dioxide 27 mmol/L (21-32); Chloride 105 mmol/L (98-107); GFR African American 152 mL/min; GFR Non-African American 125 mL/min; Glucose 161 mg/dL (74-106); Potassium 3.8 mmol/L (3.5-5.1); Sodium 140 mmol/L (136-145); Total Protein 6.4 g/dL (6.4-8.2)
[2017-01-28] MEDS: GABAPENTIN 300 MG CAP PO SCH ×3 (06:13→21:36)
[2017-01-28] MEDS: ACCU-CHEK COMFORT CURVE STRIP VI SCH ×4 (06:20→21:39)
[2017-01-28] MEDS: HYDROcodone-ACET 5/325MG TAB PO PRN ×3 (06:20→20:18)
[2017-01-28] MEDS: InsuLIN REG 1unit/0.01ml Soln (100units/ml) SC SCH ×4 (06:21→21:40)
[2017-01-28] MEDS: INSULIN DETEMIR(LEVEMIR) 1unit/0.01ml Soln (100units/ml) SC SCH (06:26)
[2017-01-28 08:00] VITALS: BP 130/83
[2017-01-28] MEDS: FAMOTIDINE 20 MG TAB PO SCH ×2 (08:19→21:31)
[2017-01-28] MEDS: MULTIPLE VITAMIN TAB PO SCH (08:19)
[2017-01-28] MEDS: ADDERALL PO SCH (08:20)
[2017-01-28 09:00] VITALS: BP 136/83
[2017-01-28] MEDS ORDERED: LACTULOSE 20Gm/30ML SOLN PO PRN (09:15)
[2017-01-28] MEDS: Boost Glucose Control 8 Ounces PO SCH ×2 (11:47→16:57)
[2017-01-28] MEDS: LACTULOSE 20Gm/30ML SOLN PO PRN ×2 (11:47→21:31)
[2017-01-28 13:00] VITALS: BP 138/82
[2017-01-28] MEDS ORDERED: POLYETHYLENE GLYCOL 17GM PWDR PO PRN (15:15)
[2017-01-28 17:00] VITALS: BP 132/80
[2017-01-28] MEDS: METOCLOPRAMIDE HCL 10 MG TAB PO SCH (21:35)
[2017-01-28 22:00] VITALS: BP 134/81
[2017-01-29] MEDS: DEXAMETHASONE INJECTION 10 MG in D5W 5% 50 ML IV SCH ×2 (00:11→21:40)
[2017-01-29] MEDS: TEMAZEPAM 15 MG CAP PO PRN ×2 (00:13→22:45)
[2017-01-29] MEDS: HYDROmorphone HCL 2 MG/ML VL IV PRN ×5 (02:28→20:20)
[2017-01-29] MEDS: ONDANSETRON HCL 4 MG/2 ML VIAL IV PRN (02:28)
[2017-01-29] MEDS: METOCLOPRAMIDE HCL 10 MG TAB PO SCH ×4 (05:34→21:41)
[2017-01-29] MEDS: GABAPENTIN 300 MG CAP PO SCH ×3 (05:35→21:40)
[2017-01-29 06:00] VITALS: BP 129/82
[2017-01-29] MEDS: InsuLIN REG 1unit/0.01ml Soln (100units/ml) SC SCH ×4 (06:05→22:45)
[2017-01-29] MEDS: ACCU-CHEK COMFORT CURVE STRIP VI SCH ×4 (06:05→21:55)
[2017-01-29] MEDS: INSULIN DETEMIR(LEVEMIR) 1unit/0.01ml Soln (100units/ml) SC SCH (06:06)
[2017-01-29 06:19] LABS: Basophils # (auto) 0 uL; Basophils % (auto) 0.3 % (0.0-2.0); Eosinophils # (auto) 0 uL; Eosinophils % (auto) 0.2 % (0.0-7.0); Hematocrit 39.9 % (41.0-53.0); Hemoglobin 13.8 g/dL (13.5-17.5); Lymphocytes # (auto) 0.7 uL; Mean Corpuscular Hemoglobin 30.2 pg (28.0-32.0); Mean Corpuscular Hgb Conc. 34.6 g/dL (32.0-36.0); Mean Corpuscular Volume 87.3 fL (80.0-100.0); Mean Platelet Volume 7.7 fL (7.4-10.4); Monocytes # (auto) 0 uL; Monocytes % (auto) 0.9 % (0.0-12.0); Neutrophils # (auto) 4.3 uL; Neutrophils % (auto) 84.6 % (37.0-80.0); Platelet Count (auto) 321 10^3/uL (140-450); Red Cell Distribution Width 11.8 % (11.6-16.0); White Blood Cell 5.1 10^3/uL (4.4-10.8)
[2017-01-29] MEDS: SODIUM CHLORIDE 0.9% 1,000 ML IV SCH ×2 (06:35→16:00)
[2017-01-29 06:51] LABS: Albumin 3.6 g/dL (3.4-5.0); BUN/Creatinine Ratio 11.5; Bilirubin, Total 0.4 mg/dL (0.2-1.0); Calcium 8.7 mg/dL (8.5-10.1); Potassium 4.3 mmol/L (3.5-5.1); Total Protein 7.2 g/dL (6.4-8.2)
[2017-01-29] MEDS: Boost Glucose Control 8 Ounces PO SCH ×3 (07:20→17:38)
[2017-01-29 08:00] VITALS: BP 119/72
[2017-01-29] MEDS: ADDERALL PO SCH (10:00)
[2017-01-29] MEDS: FAMOTIDINE 20 MG TAB PO SCH ×2 (10:00→21:41)
[2017-01-29] MEDS: MULTIPLE VITAMIN TAB PO SCH (10:57)
[2017-01-29] MEDS ORDERED: LORazepam 2MG/ML-1ML VIAL IV ONE (11:00)
[2017-01-29 12:00] VITALS: BP 133/70
[2017-01-29 17:00] VITALS: BP 116/59
[2017-01-29] MEDS ORDERED: GOLYTELY 4L KIT PO ONE (17:30)
[2017-01-29] MEDS: HYDROcodone-ACET 5/325MG TAB PO PRN ×2 (18:27→22:45)
[2017-01-29 20:00] VITALS: BP 125/80
[2017-01-30] MEDS: SODIUM CHLORIDE 0.9% 1,000 ML IV SCH ×2 (01:56→12:15)
[2017-01-30] MEDS: HYDROmorphone HCL 2 MG/ML VL IV PRN ×4 (01:57→14:07)
[2017-01-30 05:00] VITALS: BP 122/78
[2017-01-30] MEDS: GABAPENTIN 300 MG CAP PO SCH ×2 (06:07→14:07)
[2017-01-30] MEDS: METOCLOPRAMIDE HCL 10 MG TAB PO SCH ×2 (06:44→11:17)
[2017-01-30] MEDS: InsuLIN REG 1unit/0.01ml Soln (100units/ml) SC SCH ×2 (06:47→11:18)
[2017-01-30] MEDS: INSULIN DETEMIR(LEVEMIR) 1unit/0.01ml Soln (100units/ml) SC SCH (06:48)
[2017-01-30] MEDS: ACCU-CHEK COMFORT CURVE STRIP VI SCH ×2 (06:49→11:18)
[2017-01-30 06:52] LABS: Basophils # (auto) 0 uL; Basophils % (auto) 0.6 % (0.0-2.0); Eosinophils # (auto) 0 uL; Eosinophils % (auto) 0.1 % (0.0-7.0); Hematocrit 36.8 % (41.0-53.0); Hemoglobin 12.7 g/dL (13.5-17.5); Lymphocytes # (auto) 1.1 uL; Lymphocytes % (auto) 24.1 % (10.0-50.0); Mean Corpuscular Hemoglobin 30.1 pg (28.0-32.0); Mean Corpuscular Hgb Conc. 34.6 g/dL (32.0-36.0); Mean Corpuscular Volume 87.2 fL (80.0-100.0); Mean Platelet Volume 7.8 fL (7.4-10.4); Monocytes # (auto) 0.1 uL; Monocytes % (auto) 1.9 % (0.0-12.0); Neutrophils # (auto) 3.2 uL; Neutrophils % (auto) 73.3 % (37.0-80.0); Platelet Count (auto) 295 10^3/uL (140-450); Red Cell Distribution Width 11.8 % (11.6-16.0); White Blood Cell 4.4 10^3/uL (4.4-10.8)
[2017-01-30 07:09] LABS: Albumin 3.3 g/dL (3.4-5.0); Calcium 8.6 mg/dL (8.5-10.1)
[2017-01-30 07:11] LABS: BUN/Creatinine Ratio 17.6
[2017-01-30 07:15] LABS: Bilirubin, Total 0.5 mg/dL (0.2-1.0); Total Protein 6.7 g/dL (6.4-8.2)
[2017-01-30 08:00] VITALS: BP 126/69
[2017-01-30] MEDS: HYDROcodone-ACET 5/325MG TAB PO PRN ×3 (08:13→16:27)
[2017-01-30] MEDS: Boost Glucose Control 8 Ounces PO SCH ×2 (08:14→12:19)
[2017-01-30 09:09] VITALS: BP 126/69
[2017-01-30] MEDS: ADDERALL PO SCH (10:00)
[2017-01-30] MEDS: LACTULOSE 20Gm/30ML SOLN PO PRN (10:19)
[2017-01-30] MEDS: MULTIPLE VITAMIN TAB PO SCH (10:20)
[2017-01-30] MEDS: FAMOTIDINE 20 MG TAB PO SCH (10:20)
[2017-01-30] MEDS ORDERED: MAGNESIUM CITRATE SOLUTION 300 ML BTL PO ONE (13:45)
[2017-01-30] MEDS ORDERED: NOR5T PO (13:49)
[2017-01-30 16:14] VITALS: BP 126/69
[2017-01-30 16:52] VITALS: BP 127/89
[2017-01-30 17:14] VITALS: BP 126/69
== END 2017-01-30 17:50 | disposition home or self-care (01) | DRG 254 ==
LOC: EDBD 20:27 → ER 20:37 → TELE 20:38 → TELE-EAST 01-26 12:49
PROVIDERS: ADMIT Internal Medicine; ATTEND Internal Medicine
DX: K59.00 Constipation, unspecified (principal); E10.10 Type 1 diabetes mellitus with ketoacidosis without coma; E10.40 Type 1 diabetes mellitus with diabetic neuropathy, unspecified; E87.1 Hypo-osmolality and hyponatremia; E86.0 Dehydration; F32.9 Major depressive disorder, single episode, unspecified; F41.9 Anxiety disorder, unspecified; F17.210 Nicotine dependence, cigarettes, uncomplicated; G43.109 Migraine with aura, not intractable, without status migrainosus; G89.29 Other chronic pain; Z83.3 Family history of diabetes mellitus; Z91.19 Patient's noncompliance with other medical treatment and regimen; Z87.81 Personal history of (healed) traumatic fracture; R51 Headache; F19.10 Other psychoactive substance abuse, uncomplicated; Z71.89 Other specified counseling; E10.65 Type 1 diabetes mellitus with hyperglycemia
CPT/HCPCS: 36415; 70551; 71010; 74176; 80053; 80307; 81001; 82962; 83036; 83690; 84443; 84484; 85025; 87081; 87086; 96361; 96372; 96374; 96375; 96376; J1100; J1815; J2405; J7060

== ENCOUNTER 2017-03-09 13:56 | Inpatient (IN) | payer MEDICAID ==
[~2017-03-09] VITALS: Ht 190.5 cm; Wt 74.2 kg
[~2017-03-09 13:56] MED LIST changes: +GABA-497 PO; +HYDR-4663 PO
[2017-03-09 14:24] LABS: Urine RBC None Seen /hpf (0 - 3)
[2017-03-09] MEDS ORDERED: SODIUM CHLORIDE 0.9% 1,000 ML IV ONE ×2 (14:30→16:30)
[2017-03-09 14:31] LABS: Basophils # (auto) 0 uL; Basophils % (auto) 0.8 % (0.0-2.0); CONDITION Y; Eosinophils # (auto) 0 uL; Eosinophils % (auto) 0.5 % (0.0-7.0); Hematocrit 43.3 % (41.0-53.0); Hemoglobin 15.2 g/dL (13.5-17.5); Lymphocytes # (auto) 1.9 uL; Lymphocytes % (auto) 35.4 % (10.0-50.0); Mean Corpuscular Hgb Conc. 35.1 g/dL (32.0-36.0); Mean Corpuscular Volume 85.6 fL (80.0-100.0); Mean Platelet Volume 7.4 fL (7.4-10.4); Monocytes # (auto) 0.4 uL; Monocytes % (auto) 6.4 % (0.0-12.0); Neutrophils # (auto) 3.1 uL; Neutrophils % (auto) 56.9 % (37.0-80.0); Platelet Count (auto) 410 10^3/uL (140-450); Red Cell Distribution Width 12.9 % (11.6-16.0); White Blood Cell 5.5 10^3/uL (4.4-10.8)
[2017-03-09 14:38] LABS: Urine Bilirubin Negative (Negative); Urine Blood Negative /uL (Negative); Urine Color Yellow (Yellow); Urine Nitrite Negative (Negative); Urine Squamous Epithelial Cell FEW /hpf (<5); Urine Urobilinogen Normal (Negative); Urine pH 5.5 (5.0-8.0)
[2017-03-09 14:53] LABS: Urine Glucose 4+ mg/dL (Normal); Urine Ketone 1+ (Negative)
[2017-03-09 15:07] LABS: Potassium 4.5 mmol/L (3.5-5.1); Total Protein 7.9 g/dL (6.4-8.2)
[2017-03-09 15:38] LABS: Albumin 4.1 g/dL (3.4-5.0); BUN/Creatinine Ratio 22.7; Bilirubin, Total 0.8 mg/dL (0.2-1.0); Calcium 9.1 mg/dL (8.5-10.1)
[2017-03-09] MEDS ORDERED: SODIUM CHLORIDE 0.9% 1,000 ML IVB ONE (15:58)
[2017-03-09] MEDS ORDERED: ONDANSETRON HCL 4 MG/2 ML VIAL IV ONE ×2 (16:00→19:00)
[2017-03-09] MEDS ORDERED: HYDROmorphone HCL 2 MG/ML VL IV ONE ×2 (16:00→19:00)
[2017-03-09 16:40] LABS: Magnesium 2.4 mg/dL (1.6-2.6)
[2017-03-09 18:02] LABS: INR 0.97 (0.9-1.15); Partial Thromboplastin Time 27.1 sec (22.64-33.71); Prothrombin Time 10.6 sec (9.37-12.3)
[2017-03-09] MEDS: SODIUM CHLORIDE 0.9% 1,000 ML IV SCH (19:13)
[2017-03-09] MEDS ORDERED: TEMAZEPAM 15 MG CAP PO PRN (19:15)
[2017-03-09] MEDS ORDERED: ACETAMINOPHEN 325 MG TAB PO PRN (19:15)
[2017-03-09] MEDS ORDERED: DEXTROSE (50%) 50ML SYRG IV PRN (19:30)
[2017-03-09] MEDS: InsuLIN REG 1unit/0.01ml Soln (100units/ml) SC SCH ×2 (19:37→23:57)
[2017-03-09] MEDS: ACCU-CHEK COMFORT CURVE STRIP VI SCH ×2 (20:03→23:38)
[2017-03-09 20:40] VITALS: BP 115/66
[2017-03-09] MEDS: GABAPENTIN 300 MG CAP PO SCH (21:46)
[2017-03-09] MEDS: METOCLOPRAMIDE HCL 5MG/ml INJ 2ml VIAL IV SCH (21:46)
[2017-03-09 21:52] VITALS: BP 115/66
[2017-03-09] MEDS: HYDROmorphone HCL 2 MG/ML VL IV PRN (23:38)
[2017-03-09] MEDS: ONDANSETRON HCL 4 MG/2 ML VIAL IV PRN (23:39)
[2017-03-10] MEDS ORDERED: INSLANTI SC (01:02)
[2017-03-10] MEDS: SODIUM CHLORIDE 0.9% 1,000 ML IV SCH ×2 (02:53→09:04)
[2017-03-10] MEDS: InsuLIN REG 1unit/0.01ml Soln (100units/ml) SC SCH ×3 (04:00→12:20)
[2017-03-10] MEDS: ACCU-CHEK COMFORT CURVE STRIP VI SCH ×3 (04:00→12:19)
[2017-03-10] MEDS: HYDROmorphone HCL 2 MG/ML VL IV PRN ×2 (04:35→08:15)
[2017-03-10] MEDS: ONDANSETRON HCL 4 MG/2 ML VIAL IV PRN ×2 (04:35→08:15)
[2017-03-10 05:07] LABS: Basophils # (auto) 0 uL; Basophils % (auto) 0.8 % (0.0-2.0); CONDITION Y; Eosinophils # (auto) 0.2 uL; Eosinophils % (auto) 3.4 % (0.0-7.0); Hemoglobin 12.4 g/dL (13.5-17.5); Lymphocytes # (auto) 2.3 uL; Lymphocytes % (auto) 43.3 % (10.0-50.0); Mean Corpuscular Hemoglobin 29.9 pg (28.0-32.0); Mean Corpuscular Hgb Conc. 34.4 g/dL (32.0-36.0); Mean Platelet Volume 6.9 fL (7.4-10.4); Monocytes # (auto) 0.4 uL; Monocytes % (auto) 7.3 % (0.0-12.0); Neutrophils # (auto) 2.4 uL; Neutrophils % (auto) 45.2 % (37.0-80.0); Platelet Count (auto) 312 10^3/uL (140-450); Red Cell Distribution Width 12.9 % (11.6-16.0); White Blood Cell 5.4 10^3/uL (4.4-10.8)
[2017-03-10 05:18] VITALS: BP 117/66
[2017-03-10 05:38] LABS: BUN/Creatinine Ratio 25.4; Calcium 8.3 mg/dL (8.5-10.1); Phosphorus 3.8 mg/dL (2.5-4.90); Potassium 3.7 mmol/L (3.5-5.1)
[2017-03-10] MEDS: GABAPENTIN 300 MG CAP PO SCH (06:36)
[2017-03-10] MEDS: METOCLOPRAMIDE HCL 5MG/ml INJ 2ml VIAL IV SCH ×2 (06:36→12:18)
[2017-03-10] MEDS: NovoloG Insulin 1unit/0.01ml Soln (100units/ml) SC SCH ×2 (08:00→12:00)
[2017-03-10 08:30] VITALS: BP 102/55
[2017-03-10 12:30] VITALS: BP 109/67
[2017-03-10] MEDS ORDERED: METO-281 PO (13:28)
[2017-03-10] MEDS ORDERED: PANT40TA2 PO (13:28)
== END 2017-03-10 15:45 | disposition home or self-care (01) | DRG 48 ==
LOC: ER 13:56 → TELE 13:57 → WEST WING 20:40
PROVIDERS: ADMIT Internal Medicine; ATTEND Internal Medicine
DX: E10.43 Type 1 diabetes mellitus with diabetic autonomic (poly)neuropathy (principal); E87.1 Hypo-osmolality and hyponatremia; K31.84 Gastroparesis; F17.210 Nicotine dependence, cigarettes, uncomplicated; Z82.49 Family history of ischemic heart disease and other diseases of the circulatory system; Z83.3 Family history of diabetes mellitus; F32.9 Major depressive disorder, single episode, unspecified; F41.9 Anxiety disorder, unspecified; G43.909 Migraine, unspecified, not intractable, without status migrainosus; G43.A0 Cyclical vomiting, in migraine, not intractable; F19.10 Other psychoactive substance abuse, uncomplicated
CPT/HCPCS: 36415; 71010; 74176; 80048; 80053; 80307; 81001; 82150; 82962; 83036; 83605; 83690; 83735; 84100; 85025; 85610; 85730; 87081; 94761; 96361; 96374; 96375; 96376; J1815; J2405

== ENCOUNTER 2017-10-10 12:23 | Emergency (ER) | payer MEDICAID ==
[~2017-10-10] VITALS: Ht 193 cm; Wt 72.1 kg
[~2017-10-10 12:23] MED LIST changes: -GABA-497 PO; +GABA300C10 PO; -HYDR-4663 PO; +INSLANTI SC; +METO-281 PO; +PANT40TA2 PO
[2017-10-10] MEDS ORDERED: SODIUM CHLORIDE 0.9% 1,000 ML IV ONE ×2 (12:36)
[2017-10-10] MEDS ORDERED: NITROGLYCERIN 0.4 MG SL TAB SL ONE (12:45)
[2017-10-10] MEDS ORDERED: ASPirin 325 MG TAB PO ONE (12:45)
[2017-10-10 13:00] LABS: Basophils # (auto) 0.1 uL; Basophils % (auto) 1.8 % (0.0-2.0); Eosinophils # (auto) 0.1 uL; Eosinophils % (auto) 1.7 % (0.0-7.0); Hematocrit 42.5 % (41.0-53.0); Hemoglobin 14.4 g/dL (13.5-17.5); Lymphocytes # (auto) 2.7 uL; Lymphocytes % (auto) 37.9 % (10.0-50.0); Mean Corpuscular Hemoglobin 30.1 pg (28.0-32.0); Mean Corpuscular Volume 88.5 fL (80.0-100.0); Monocytes # (auto) 0.4 uL; Monocytes % (auto) 5.4 % (0.0-12.0); Neutrophils # (auto) 3.8 uL; Neutrophils % (auto) 53.2 % (37.0-80.0); Nucleated Red Blood Cells % 0.1 %; Platelet Count (auto) 346 10^3/uL (140-450); Red Cell Distribution Width 13.3 % (11.8-14.3); White Blood Cell 7.1 10^3/uL (4.4-10.8)
[2017-10-10 13:39] LABS: Alanine Aminotransferase 20 U/L (16-61); Albumin 4.1 g/dL (3.4-5.0); Alkaline Phosphatase 100 U/L (45-117); Anion Gap 9 (5-15); Aspartate Aminotransferase 11 U/L (15-37); BUN/Creatinine Ratio 18.5; Bilirubin, Total 0.4 mg/dL (0.2-1.0); Blood Urea Nitrogen 17 mg/dL (7-18); Carbon Dioxide 28 mmol/L (21-32); Chloride 101 mmol/L (98-107); GFR African American 123 mL/min; GFR Non-African American 102 mL/min; Glucose 247 mg/dL (74-106); Potassium 3.7 mmol/L (3.5-5.1); Sodium 138 mmol/L (136-145); Total Protein 8.4 g/dL (6.4-8.2)
[2017-10-10 14:01] VITALS: BP 116/71
[2017-10-10] MEDS ORDERED: KETOROLAC TROMETH 30 MG/ML 1ML VIAL IV ONE (14:30)
[2017-10-10] MEDS ORDERED: InsuLIN REG 1unit/0.01ml Soln (100units/ml) IV ONE ×2 (14:30→14:45)
[2017-10-10 15:51] LABS: Alcohol, Urine < 3.0 mg/dL (0-5); Amphetamine Screen, Urine NEGATIVE (NEGATIVE); Barbiturate Scree,Urine NEGATIVE (NEGATIVE); Benzodiazephine Screen, Urine NEGATIVE (NEGATIVE); Cannabinoid Screen, Urine POSITIVE (NEGATIVE); Cocaine Screen, Urine NEGATIVE (NEGATIVE); Opiate Scree,Urine NEGATIVE (NEGATIVE); Phencyclidine Screen, Urine NEGATIVE (NEGATIVE)
[2017-10-10 16:03] LABS: Urine Bacteria NONE SEEN /hpf (None Seen); Urine Blood Negative /uL (Negative); Urine Specific Gravity 1.022 (1.001-1.035); Urine WBC <1 /hpf (0 - 3)
== END 2017-10-10 16:13 | disposition home or self-care (01) ==
LOC: ER 12:23
DX: R07.9 Chest pain, unspecified (principal); E10.65 Type 1 diabetes mellitus with hyperglycemia; F17.210 Nicotine dependence, cigarettes, uncomplicated; F12.10 Cannabis abuse, uncomplicated; Z79.4 Long term (current) use of insulin; Z79.82 Long term (current) use of aspirin
CPT/HCPCS: 36415; 71045; 80053; 80307; 81001; 82962; 84484; 85025; 93005; 96361; 96372; 96374; 96375; 99285; J1815; J1885; J7030

== ENCOUNTER 2017-12-21 23:55 | Emergency (ER) | payer MEDICAID ==
[~2017-12-21] VITALS: Ht 190.5 cm; Wt 74.8 kg
[2017-12-22 00:06] VITALS: BP 148/81
[2017-12-22 00:37] LABS: Urine Bacteria NONE SEEN /hpf (None Seen); Urine Blood Negative /uL (Negative); Urine Hyaline Cast FEW /lpf (0 - 2); Urine Mucus FEW (None Seen); Urine Specific Gravity 1.025 (1.001-1.035); Urine WBC 1 /hpf (0 - 3)
[2017-12-22 00:50] LABS: Alcohol, Urine < 3.0 mg/dL (0-5); Amphetamine Screen, Urine POSITIVE (NEGATIVE); Barbiturate Scree,Urine NEGATIVE (NEGATIVE); Benzodiazephine Screen, Urine NEGATIVE (NEGATIVE); Cannabinoid Screen, Urine POSITIVE (NEGATIVE); Cocaine Screen, Urine NEGATIVE (NEGATIVE); Opiate Scree,Urine NEGATIVE (NEGATIVE); Phencyclidine Screen, Urine NEGATIVE (NEGATIVE)
[2017-12-22 01:21] LABS: Basophils # (auto) 0.1 uL; Basophils % (auto) 0.9 % (0.0-2.0); Eosinophils # (auto) 0.1 uL; Eosinophils % (auto) 1.9 % (0.0-7.0); Hematocrit 43.1 % (41.0-53.0); Hemoglobin 14.8 g/dL (13.5-17.5); Lymphocytes # (auto) 2.5 uL; Lymphocytes % (auto) 31.8 % (10.0-50.0); Mean Corpuscular Hemoglobin 30.5 pg (28.0-32.0); Mean Corpuscular Hgb Conc. 34.3 g/dL (32.0-36.0); Mean Corpuscular Volume 88.9 fL (80.0-100.0); Monocytes # (auto) 0.7 uL; Monocytes % (auto) 8.6 % (0.0-12.0); Neutrophils # (auto) 4.5 uL; Neutrophils % (auto) 56.8 % (37.0-80.0); Nucleated Red Blood Cells % 0.2 %; Platelet Count (auto) 385 10^3/uL (140-450); Red Blood Cells 4.84 10^6/uL (4.5-5.90); Red Cell Distribution Width 13.3 % (11.8-14.3); White Blood Cell 7.9 10^3/uL (4.4-10.8)
[2017-12-22 01:38] LABS: Potassium 4.2 mmol/L (3.5-5.1); Sodium 135 mmol/L (136-145)
[2017-12-22 01:39] LABS: Alanine Aminotransferase 23 U/L (16-61); Albumin 4.5 g/dL (3.4-5.0); Anion Gap 9 (5-15); Aspartate Aminotransferase 17 U/L (15-37); BUN/Creatinine Ratio 19.6; Blood Urea Nitrogen 21 mg/dL (7-18); Calcium 9.3 mg/dL (8.5-10.1); Carbon Dioxide 22 mmol/L (21-32); Chloride 104 mmol/L (98-107); GFR African American 104 mL/min; GFR Non-African American 86 mL/min; Glucose 234 mg/dL (74-106)
[2017-12-22 01:43] LABS: Alkaline Phosphatase 96 U/L (45-117); Bilirubin, Total 0.3 mg/dL (0.2-1.0); Total Protein 8.4 g/dL (6.4-8.2)
== END 2017-12-22 04:15 | disposition left against medical advice (07) ==
LOC: EDBD 23:55 → ER 12-22 00:04
DX: E16.2 Hypoglycemia, unspecified (principal); F41.9 Anxiety disorder, unspecified; Z53.21 Procedure and treatment not carried out due to patient leaving prior to being seen by health care provider
CPT/HCPCS: 36415; 80053; 80307; 81001; 82962; 84484; 85025

== ENCOUNTER 2019-01-14 16:25 | Emergency (ER) | payer MEDICAID ==
[~2019-01-14] VITALS: Ht 190.5 cm; Wt 82.1 kg
[2019-01-14 16:34] VITALS: BP 122/73
[2019-01-14] MEDS ORDERED: IBUPROFEN 600 MG TAB PO ONE (19:00)
[2019-01-14] MEDS ORDERED: HYDROcodone-ACET 10/325MG TAB PO ONE (19:00)
== END 2019-01-14 19:24 | disposition home or self-care (01) ==
LOC: ER 16:25
DX: S92.412A Displaced fracture of proximal phalanx of left great toe, initial encounter for closed fracture (principal); E10.8 Type 1 diabetes mellitus with unspecified complications; F17.210 Nicotine dependence, cigarettes, uncomplicated; F12.10 Cannabis abuse, uncomplicated; Z79.4 Long term (current) use of insulin; Z79.899 Other long term (current) drug therapy; X58.XXXA Exposure to other specified factors, initial encounter; Y93.89 Activity, other specified; Y92.89 Other specified places as the place of occurrence of the external cause; Y99.8 Other external cause status
CPT/HCPCS: 73630; 99283; L3260

== ENCOUNTER 2019-04-17 17:58 | Inpatient (IN) | payer MEDICAID ==
[~2019-04-17] VITALS: Ht 185.4 cm; Wt 79.4 kg
[2019-04-17] MEDS ORDERED: ONDANSETRON HCL 4 MG/2 ML VIAL IV ONE (20:30)
[2019-04-17] MEDS ORDERED: MORPHINE SULF INJ 2 MG/ML SYRINGE 1ML IV ONE ×2 (20:30→21:30)
[2019-04-17 20:43] LABS: Alanine Aminotransferase 24 U/L (16-61); Albumin 3.8 g/dL (3.4-5.0); Anion Gap 9 (5-15); Aspartate Aminotransferase 39 U/L (15-37); BUN/Creatinine Ratio 14.8; Blood Alcohol < 3.0 mg/dL (0-5); Blood Urea Nitrogen 19 mg/dL (7-18); Calcium 8.9 mg/dL (8.5-10.1); Carbon Dioxide 26 mmol/L (21-32); Chloride 102 mmol/L (98-107); GFR African American 83 mL/min; GFR Non-African American 69 mL/min; Glucose 358 mg/dL (74-106); Magnesium 2.2 mg/dL (1.6-2.6); Sodium 137 mmol/L (136-145)
[2019-04-17 20:45] LABS: Alkaline Phosphatase 85 U/L (45-117); Bilirubin, Total 0.4 mg/dL (0.2-1.0); Total Protein 8.1 g/dL (6.4-8.2)
[2019-04-17] MEDS ORDERED: SODIUM CHLORIDE 0.9% 1,000 ML IVB ONE (20:46)
[2019-04-17] MEDS ORDERED: PANTOPRAZOLE 40 MG/10 ML VIAL INJ IV ONE (21:00)
[2019-04-17 21:14] LABS: Acetaminophen < 2.0 ug/mL (10-30); Salicylate < 1.7 mg/dL (2.8-20.0)
[2019-04-17] MEDS ORDERED: PROMETHAZINE HCL 25 MG/ML 1ML IV ONE (21:30)
[2019-04-17] MEDS ORDERED: SODIUM CHLORIDE 0.9% 1,000 ML IV ONE (21:30)
[2019-04-17] MEDS ORDERED: PANTOPRAZOLE 40 MG TAB PO ONE (22:00)
[2019-04-17 22:13] LABS: Basophils # (auto) 0.1 uL; Basophils % (auto) 0.5 % (0.0-2.0); Eosinophils # (auto) 0.2 uL; Eosinophils % (auto) 1.2 % (0.0-7.0); Hematocrit 40.5 % (41.0-53.0); Hemoglobin 13.6 g/dL (13.5-17.5); Lymphocytes # (auto) 1.7 uL; Lymphocytes % (auto) 11.9 % (10.0-50.0); Mean Corpuscular Hemoglobin 29.2 pg (28.0-32.0); Mean Corpuscular Hgb Conc. 33.6 g/dL (32.0-36.0); Mean Corpuscular Volume 86.7 fL (80.0-100.0); Monocytes # (auto) 0.7 uL; Monocytes % (auto) 5.1 % (0.0-12.0); Neutrophils # (auto) 11.4 uL; Neutrophils % (auto) 81.3 % (37.0-80.0); Platelet Count (auto) 285 10^3/uL (140-450); Red Blood Cells 4.68 10^6/uL (4.5-5.90); White Blood Cell 14.1 10^3/uL (4.4-10.8)
[2019-04-17 22:59] LABS: Amylase 21 U/L (25-115); Lipase 28 U/L (73-393)
[2019-04-17] MEDS ORDERED: InsuLIN REG 1unit/0.01ml Soln (100units/ml) SC ONE (23:15)
[2019-04-17] MEDS: SODIUM CHLORIDE 0.9% 1,000 ML IV SCH (23:45)
[2019-04-17] MEDS ORDERED: MORPHINE SULF INJ 2 MG/ML SYRINGE 1ML IV PRN (23:45)
[2019-04-17] MEDS ORDERED: ONDANSETRON HCL 4 MG/2 ML VIAL IV PRN (23:45)
[2019-04-17] MEDS ORDERED: ACETAMINOPHEN 325 MG TAB PO PRN (23:45)
[2019-04-18] MEDS ORDERED: ONDANSETRON HCL 4 MG/2 ML VIAL IV ONE (01:00)
[2019-04-18] MEDS ORDERED: MORPHINE SULFATE 4 MG/ML SYR/VIAL IV ONE (01:00)
[2019-04-18] MEDS ORDERED: LORazepam 2MG/ML-1ML VIAL IV PRN (01:30)
[2019-04-18] MEDS ORDERED: LORazepam 2MG/ML-1ML VIAL IV ONE (01:30)
[2019-04-18] MEDS ORDERED: HALOPERIDOL LACTATE 5 MG/ML INJ VIAL IM ONE (01:30)
[2019-04-18] MEDS ORDERED: DEXTROSE (50%) 50ML SYRG IV PRN (01:30)
[2019-04-18] MEDS ORDERED: diphenhdrAMINE HCL 50 MG/1 ML VL IV ONE (01:30)
[2019-04-18] MEDS ORDERED: METOCLOPRAMIDE HCL 5MG/ml INJ 2ml VIAL IV PRN (01:45)
--- NOTE | 2019-04-18 03:27 | NUR ---
MS admit from [facility] after no SBAR received. Patient oriented to MOHAN STEWART, RN primary RN, unit, room, bed, and unit policies regarding patient care and visiting hours. Patient weighed by bedscale and encouraged to call if they need something. Bed in lowest locked position, side rails up x2, call light within reach, bed alarm on. Patient dressed in green gown and placed near nurse's station for safety. All questions and concerns addressed, patient nodded understanding. Patient resistive to care, refusing to answer staff questions at this time, states he is "really out of it, I just want to sleep." Patient nodded when asked if he had an argument with his mother and if he jumped in an aqueduct. Patient states "no" when RN asked if he wanted to kill himself. When RN asked if patient had ever wanted to kill himself, patient shrugged and did not verbalize an answer. Patient withdrawing from touch from staff and became aggravated when this RN had to awaken patient to attach tubing for Normal Saline to patient's IV. Blood pressure cuff on patient's right forearm when admitted to unit, blood pressure reading 83/47 despite rechecks and prior to administration of Normal Saline. Patient nodded when this RN asked if his blood pressure always runs low. Will attempt to recheck prior to end of shift. Patient states that he is in pain when asked, but refuses to answer any further questions from this RN or staff. Patient curled up in position with blankets over patient's head, eyes closed, respirations even and unlabored, appears asleep. No s/s of distress at this time. Will inform charge nurse Lizeth RN of patient's status and continue to monitor patient.
[2019-04-18 04:00] VITALS: BP 83/47
--- NOTE | 2019-04-18 04:15 | NUR ---
Mom Visit Patient's mother Jessica Singh requested to come up from ER to "say good night" to patient. Mother brought to floor accompanied by security. This RN spoke with patient's mother, mother states that patient "tried to kill himself tonight". Mother was amenable to not seeing son after hearing that son was fatigued and aggravated by staff care at this time. Mother informed of visiting hours, phone number confirmed, and all questions and concerns addressed at this time. Phone number for mother placed in electronic chart as patient's next of kin contact at this time due to resistance from patient regarding questions at this time.
--- NOTE | 2019-04-18 05:00 | NUR ---
Charge Nurse Charge nurse Lizeth LALA updated on patient's status including his resistance to care at this time. Charge nurse made aware patient noncooperative with staff and will likely be noncooperative with ordered Tele Psych Consult at this time. Charge nurse verbalized understanding. Will continue to monitor patient.
[2019-04-18] MEDS: GABAPENTIN 300 MG CAP PO SCH ×2 (06:00→14:00)
[2019-04-18] MEDS ORDERED: metroNIDAZOLE 500MG/100ML 100 ML IV SCH (06:00)
--- NOTE | 2019-04-18 06:00 | NUR ---
Blood Pressure Reassessment Blood pressure 96/56 on left arm. Patient tolerated well. Will continue to monitor.
[2019-04-18 06:11] VITALS: BP 96/56
[2019-04-18] MEDS: ACCU-CHEK COMFORT CURVE STRIP VI SCH ×2 (07:00→11:36)
[2019-04-18] MEDS: InsuLIN REG 1unit/0.01ml Soln (100units/ml) SC SCH ×2 (07:00→11:30)
--- NOTE | 2019-04-18 07:27 | NUR ---
Closing Note Patient lying in bed, eyes closed, respirations even and unlabored, appears asleep. No s/s of distress. Patient rolls over away from RN when asked if he would like ordered morning medications, only able to administer ordered Flagyl at this time. Bed in lowest locked position, side rails up x2, call light within reach, bed alarm on. Care endorsed to dayshift RN.
--- NOTE | 2019-04-18 08:00 | NUR ---
PT REFUSED VITAL SIGNS AND PHYSICAL ASSESSMENT, PT STATED THAT HE HAS NOT SLEPT ALL NIGHT AND THAT NOW HE JUST WANT TO BE LEFT ALONE AND NOT BE BOTHER, WILL CONTINUE TO MONITOR PT.
--- NOTE | 2019-04-18 08:37 | NUR ---
PT REFUSED 0900 VITALS PT STATED " I HAVE BEEN UP ALL NIGHT, I WANT TO BE LEFT ALONE TO SLEEP. "
[2019-04-18] MEDS ORDERED: cefTRIAXone 1GM/50ML D5W 50 ML IV SCH (09:00)
[2019-04-18] MEDS ORDERED: PANTOPRAZOLE 40 MG TAB PO SCH (10:00)
[2019-04-18 10:16] LABS: Calcium 8.2 mg/dL (8.5-10.1)
[2019-04-18 10:18] LABS: BUN/Creatinine Ratio 14.9
--- NOTE | 2019-04-18 10:20 | NUR ---
PT REMOVED THE IV FLUIDS, IV TUBING FOUND ON THE FLOOR, PT SLEEPING. WILL CONTINUE TO MONITOR PT.
--- NOTE | 2019-04-18 10:50 | NUR ---
Attempted to do the tele psych evaluation, pt stated that he is not going to do the psych eval, and he does not care what the doctor says.
--- NOTE | 2019-04-18 10:55 | NUR ---
Pt reported generalized abdominal pain 10/10, pt groaning, moaning, and grabbing his stomach, pt stated that it is an excruciating pain, pt requested pain medication, pt denied nausea, pt agreed to have vital signs done, will medicate pt as order.
[2019-04-18 11:23] LABS: Basophils # (auto) 0.1 uL; Basophils % (auto) 0.9 % (0.0-2.0); Eosinophils # (auto) 0.2 uL; Eosinophils % (auto) 2.7 % (0.0-7.0); Hematocrit 37.9 % (41.0-53.0); Hemoglobin 12.6 g/dL (13.5-17.5); Lymphocytes # (auto) 1.2 uL; Mean Corpuscular Hemoglobin 28.9 pg (28.0-32.0); Mean Corpuscular Hgb Conc. 33.3 g/dL (32.0-36.0); Mean Corpuscular Volume 86.9 fL (80.0-100.0); Monocytes # (auto) 0.4 uL; Monocytes % (auto) 6.1 % (0.0-12.0); Neutrophils # (auto) 4.7 uL; Neutrophils % (auto) 71.3 % (37.0-80.0); Nucleated Red Blood Cells % 0.1 %; Platelet Count (auto) 287 10^3/uL (140-450); Red Blood Cells 4.36 10^6/uL (4.5-5.90); Red Cell Distribution Width 13.3 % (11.8-14.3); White Blood Cell 6.5 10^3/uL (4.4-10.8)
[2019-04-18 12:39] VITALS: BP 106/53
[2019-04-18] MEDS: SODIUM CHLORIDE 0.9% 1,000 ML IV SCH (13:05)
--- NOTE | 2019-04-18 13:08 | NUR ---
Dr. Alex Jacobo at bed side to see pt, pt agitated and ask the doctor why is he stuck here in the hospital, pt is refusing all care and wants to leave the hospital, doctor explained the risk of leaving the hospital with our medical advice, pt verbalized understanding but requested to leave the hospital. Pt signed AMA form.
[2019-04-18] MEDS ORDERED: HYDROcodone-ACET 5/325MG TAB PO ONE (13:15)
--- NOTE | 2019-04-18 13:58 | NUR ---
Pt walked out of the hospital with all personal belongings accompanied by mother, no distress noted at time of departure.
[2019-04-18] MEDS ORDERED: InsuLIN REG 1unit/0.01ml Soln (100units/ml) SC SCH (22:00)
== END 2019-04-18 13:58 | disposition left against medical advice (07) | DRG 48 ==
LOC: EDBD 17:58 → ER 17:58 → OVERFLOW 17:59 → WEST WING 04-18 03:27
PROVIDERS: ADMIT Nurse Practitioner Family; ATTEND Nurse Practitioner Family
DX: E10.43 Type 1 diabetes mellitus with diabetic autonomic (poly)neuropathy (principal); R45.851 Suicidal ideations; K31.84 Gastroparesis; E10.40 Type 1 diabetes mellitus with diabetic neuropathy, unspecified; F32.9 Major depressive disorder, single episode, unspecified; F17.210 Nicotine dependence, cigarettes, uncomplicated; F41.9 Anxiety disorder, unspecified; G89.29 Other chronic pain; Z79.4 Long term (current) use of insulin; Z79.899 Other long term (current) drug therapy; Z82.49 Family history of ischemic heart disease and other diseases of the circulatory system; Z83.3 Family history of diabetes mellitus; K21.9 Gastro-esophageal reflux disease without esophagitis; Z53.21 Procedure and treatment not carried out due to patient leaving prior to being seen by health care provider
CPT/HCPCS: 36415; 74176; 80048; 80053; 80320; 80329; 82150; 82962; 83036; 83690; 83735; 85025; 94761; 96361; 96372; 96374; 96375; 96376; G0378; J0696; J1815; J2405; J3490

== ENCOUNTER 2019-06-29 11:13 | Inpatient (IN) | payer MEDICAID ==
[~2019-06-29] VITALS: Ht 172.7 cm; Wt 83.3 kg
[2019-06-29] MEDS ORDERED: SODIUM CHLORIDE 0.9% 1,000 ML IV ONE ×2 (11:28)
[2019-06-29] MEDS ORDERED: MORPHINE SULFATE 4 MG/ML SYR/VIAL IV ONE (11:30)
[2019-06-29] MEDS ORDERED: SODIUM CHLORIDE 0.9% 2,000 ML IV ONE (11:30)
[2019-06-29] MEDS ORDERED: PROCHLORPERAZINE EDISYLATE 5 MG/ML 2ML VIAL IV ONE ×2 (11:30→16:15)
[2019-06-29] MEDS ORDERED: LORazepam 2MG/ML-1ML VIAL IV ONE (11:30)
[2019-06-29 12:02] LABS: Basophils # (auto) 0 uL; Basophils % (auto) 0.3 % (0.0-2.0); Eosinophils # (auto) 0.1 uL; Eosinophils % (auto) 0.6 % (0.0-7.0); Hematocrit 45.9 % (41.0-53.0); Lymphocytes # (auto) 1.7 uL; Lymphocytes % (auto) 13.5 % (10.0-50.0); Mean Corpuscular Hemoglobin 28.9 pg (28.0-32.0); Mean Corpuscular Hgb Conc. 32.6 g/dL (32.0-36.0); Mean Corpuscular Volume 88.5 fL (80.0-100.0); Monocytes # (auto) 0.4 uL; Monocytes % (auto) 3.7 % (0.0-12.0); Neutrophils # (auto) 10.1 uL; Neutrophils % (auto) 81.9 % (37.0-80.0); Nucleated Red Blood Cells % 0.2 %; Platelet Count (auto) 370 10^3/uL (140-450); Red Blood Cells 5.19 10^6/uL (4.5-5.90); Red Cell Distribution Width 13.8 % (11.8-14.3); White Blood Cell 12.3 10^3/uL (4.4-10.8)
[2019-06-29 12:16] LABS: Albumin 4.6 g/dL (3.4-5.0); Calcium 10.2 mg/dL (8.5-10.1); Potassium 3.9 mmol/L (3.5-5.1)
[2019-06-29 12:18] LABS: BUN/Creatinine Ratio 13.2
[2019-06-29 12:20] LABS: Bilirubin, Total 0.5 mg/dL (0.2-1.0); Total Protein 9.4 g/dL (6.4-8.2)
[2019-06-29] MEDS ORDERED: InsuLIN REG 1unit/0.01ml Soln (100units/ml) IV ONE (12:45)
[2019-06-29] MEDS ORDERED: metroNIDAZOLE 500MG/100ML 100 ML IV ONE (13:15)
[2019-06-29] MEDS ORDERED: cefTRIAXone 1GM/50ML D5W 50 ML IV ONE (13:15)
[2019-06-29] MEDS ORDERED: PROCHLORPERAZINE EDISYLATE 5 MG/ML 2ML VIAL ONE (15:59)
[2019-06-29] MEDS ORDERED: MORPHINE SULF INJ 2 MG/ML SYRINGE 1ML IV PRN (16:00)
[2019-06-29] MEDS ORDERED: ACETAMINOPHEN 500 MG TAB PO PRN (16:00)
[2019-06-29] MEDS ORDERED: KETOROLAC TROMETH 30 MG/ML 1ML VIAL IV ONE (16:00)
[2019-06-29] MEDS ORDERED: DEXTROSE (50%) 50ML SYRG IV PRN (16:00)
[2019-06-29] MEDS ORDERED: HYDROcodone-ACET 5/325MG TAB PO PRN (16:00)
[2019-06-29] MEDS ORDERED: PROMETHAZINE HCL 25 MG/ML 1ML IV PRN (16:00)
[2019-06-29] MEDS: SODIUM CHLORIDE 0.9% 1,000 ML IV SCH (16:04)
[2019-06-29 16:06] LABS: Urine Bacteria NONE SEEN /hpf (None Seen); Urine Blood Negative /uL (Negative); Urine Specific Gravity 1.034 (1.001-1.035); Urine WBC <1 /hpf (0 - 3)
[2019-06-29 16:20] LABS: Alcohol, Urine < 3.0 mg/dL (0-5); Amphetamine Screen, Urine NEGATIVE (NEGATIVE); Barbiturate Scree,Urine NEGATIVE (NEGATIVE); Benzodiazephine Screen, Urine NEGATIVE (NEGATIVE); Cannabinoid Screen, Urine POSITIVE (NEGATIVE); Cocaine Screen, Urine NEGATIVE (NEGATIVE); Opiate Scree,Urine POSITIVE (NEGATIVE); Phencyclidine Screen, Urine NEGATIVE (NEGATIVE)
[2019-06-29] MEDS ORDERED: HYDROmorphone HCL 2 MG/ML VL IV PRN (16:45)
[2019-06-29] MEDS: FOLIC ACID 1 MG, MULTIPLE VITAMIN 10 ML, MAGNESIUM SULF SDV 50% 8 MEQ, THIAMINE INJ 100... INJ SCH ×10 (17:07→17:10)
[2019-06-29] MEDS: InsuLIN REG 1unit/0.01ml Soln (100units/ml) SC SCH ×2 (17:26→22:07)
[2019-06-29] MEDS: ACCU-CHEK COMFORT CURVE STRIP VI SCH ×2 (17:27→22:07)
[2019-06-29 17:50] VITALS: BP 112/70
--- NOTE | 2019-06-29 18:00 | NUR ---
MS admit from ER: MANI SURESH admitted to tele/MS after SBAR received. Patient oriented to EDSON HOLLEY, RN primary RN, unit, room, bed, and unit policies regarding patient care and visiting hours. Patient weighed by bedscale and encouraged to call if they need something. All questions and concerns addressed, patient verbalized understanding.
--- NOTE | 2019-06-29 18:31 | NUR ---
Patient unable to verbalized any family history. Patient unable to provide list of home meds. Patient unable to provide pharmacy. Patient denied full skin assessment.
--- NOTE | 2019-06-29 19:15 | NUR ---
Opening Shift Note Received report from silva Keating RN. Assumed care of patient, awake and alert. No S/S of distress/SOB or pain. Instructed on POC and to call for assist PRN, will continue to monitor for changes Q1hr and PRN. Bed placed in lowest position, and call light within reach.
[2019-06-29 20:00] VITALS: BP 145/77
[2019-06-29] MEDS: HYDROmorphone HCL 2 MG/ML VL IV PRN (21:12)
[2019-06-29 22:00] VITALS: BP 145/77
[2019-06-29] MEDS: METOCLOPRAMIDE HCL 5MG/ml INJ 2ml VIAL IV SCH (22:01)
[2019-06-29] MEDS: GABAPENTIN 300 MG CAP PO SCH (22:06)
[2019-06-30] MEDS: HYDROmorphone HCL 2 MG/ML VL IV PRN ×3 (01:20→11:10)
[2019-06-30] MEDS: SODIUM CHLORIDE 0.9% 1,000 ML IV SCH ×2 (01:21→09:47)
[2019-06-30] MEDS ORDERED: CHOL20007 OR (04:10)
[2019-06-30] MEDS ORDERED: DULO20CA PO (04:10)
[2019-06-30] MEDS ORDERED: POLY33504 PO (04:10)
[2019-06-30 05:52] VITALS: BP 111/57
[2019-06-30] MEDS: METOCLOPRAMIDE HCL 5MG/ml INJ 2ml VIAL IV SCH ×2 (06:07→14:14)
[2019-06-30] MEDS: GABAPENTIN 300 MG CAP PO SCH ×2 (06:07→14:14)
[2019-06-30] MEDS: ACCU-CHEK COMFORT CURVE STRIP VI SCH ×2 (06:09→11:45)
[2019-06-30] MEDS: InsuLIN REG 1unit/0.01ml Soln (100units/ml) SC SCH ×2 (06:09→11:45)
--- NOTE | 2019-06-30 06:30 | NUR ---
ROUNDS Patient's blood sugar is 211, with a corresponding insulin coverage of 4 units. Patient refused the 2 units and only accepted 2 units of insulin. Patient just received dilaudid for pain to abdomen of 8/10. No distress noted.
--- NOTE | 2019-06-30 07:16 | NUR ---
Opening Shift Note Received SBAR and assumed care of patient. Patient is awake, alert and oriented, complaining of abdominal pain 8/10. No S/S of distress noted. Instructed patient on plan of care and instructed patient to call for assistance as needed. Will continue to monitor.
[2019-06-30 08:26] VITALS: BP 112/63
[2019-06-30 09:00] VITALS: BP 112/63
[2019-06-30 09:53] LABS: Basophils # (auto) 0.1 uL; Basophils % (auto) 0.7 % (0.0-2.0); Eosinophils # (auto) 0 uL; Eosinophils % (auto) 0.4 % (0.0-7.0); Hematocrit 39.1 % (41.0-53.0); Hemoglobin 12.9 g/dL (13.5-17.5); Lymphocytes % (auto) 18.3 % (10.0-50.0); Mean Corpuscular Hemoglobin 29.6 pg (28.0-32.0); Mean Corpuscular Volume 89.5 fL (80.0-100.0); Monocytes # (auto) 0.5 uL; Monocytes % (auto) 4.9 % (0.0-12.0); Neutrophils # (auto) 8.2 uL; Neutrophils % (auto) 75.7 % (37.0-80.0); Nucleated Red Blood Cells % 0.1 %; Platelet Count (auto) 273 10^3/uL (140-450); Red Blood Cells 4.37 10^6/uL (4.5-5.90); Red Cell Distribution Width 14.1 % (11.8-14.3); White Blood Cell 10.8 10^3/uL (4.4-10.8)
[2019-06-30] MEDS ORDERED: FAMOTIDINE 20 MG TAB PO SCH (10:00)
[2019-06-30] MEDS ORDERED: PANTOPRAZOLE 40 MG TAB PO SCH ×2 (10:00→22:00)
[2019-06-30 10:13] LABS: Calcium 7.7 mg/dL (8.5-10.1); Potassium 3.7 mmol/L (3.5-5.1)
--- NOTE | 2019-06-30 11:15 | NUR ---
PT NOTES PT WAS VERY AGITATED STATING THAT NO ONE HAD CAME IN TO HIS ROOM WHEN HE WAS CALLING. INFORMED PT THAT THE STAFF HAD BEEN IN AND OUT OF HIS ROOM TO ANSWER HIS CALL AND TO LET HIM KNOW THAT THE RN WILL BE IN. PT WAS ALSO UPSET THAT THE DR HASN'T SEEN HIM, STATING THAT HE KNOWS THE MD'S ARE ALREADY HERE BY 9 AM. RNs TRIED TO EXPLAIN TO PT WHAT'S GOING ON BUT PT KEPT ON YELLING "SHUT UP" "SHUT YOUR MOUTH" AND STARTED CURSING TO STAFF. SENIOR SUSTAINABILITY CONSULTANT, KARYN MADE AWARE.
--- NOTE | 2019-06-30 11:55 | NUR ---
REPORT RECEIVED CONTINUE CARE PATIENT IS ALERT ORIENTED X4, NO DISTRESS NOTED, SITTING IN BED HEAD DOWN, VERY UPSET WITH ALL HIS NURSES, PAIN 4/10 AT THIS TIME, CALL LIGHT WITHIN REACH
--- NOTE | 2019-06-30 12:15 | NUR ---
IV insertion IV access obtained, via clean sterile technique by inserting 22 gauge catheter at after attempt(s). IV secured properly. No trauma to site. Patient tolerated procedure well.
[2019-06-30 13:00] VITALS: BP 134/75
--- NOTE | 2019-06-30 14:20 | NUR ---
PATIENT STATED I WANT TO LEAVE, AGREE TO SIGN AMA, EXPLAIN TO PT AMA RISK, PATIENT VERBALIS UNDERSTANDING
--- NOTE | 2019-06-30 14:22 | NUR ---
AMA Note MANI SURESH states they want to leave the hospital Against Medical Advice (AMA). Patient encouraged to stay for further treatment/stabilization. NATHANIEL UNDERWOOD notified of patient's wishes. Patient advised of the risks and benefits of leaving AMA. Patient verbalized understanding. Patient encouraged to return to the ER if symptoms do not improve or worsen.
[2019-06-30] MEDS ORDERED: SUCRALFATE 1 GM/10 ML ORAL SUSP PO SCH (17:00)
== END 2019-06-30 11:20 | disposition left against medical advice (07) | DRG 48 ==
LOC: EDBD 11:13 → ER 11:13 → OVERFLOW 11:14 → ER 15:46 → EAST 17:58
PROVIDERS: ADMIT Nurse Practitioner Acute Care; ATTEND Internal Medicine
DX: E10.43 Type 1 diabetes mellitus with diabetic autonomic (poly)neuropathy (principal); E10.65 Type 1 diabetes mellitus with hyperglycemia; K31.84 Gastroparesis; E10.42 Type 1 diabetes mellitus with diabetic polyneuropathy; K52.9 Noninfective gastroenteritis and colitis, unspecified; E87.5 Hyperkalemia; E86.0 Dehydration; F12.90 Cannabis use, unspecified, uncomplicated; K21.9 Gastro-esophageal reflux disease without esophagitis; Z96.649 Presence of unspecified artificial hip joint; F17.210 Nicotine dependence, cigarettes, uncomplicated; Z53.29 Procedure and treatment not carried out because of patient's decision for other reasons; F32.9 Major depressive disorder, single episode, unspecified; F41.9 Anxiety disorder, unspecified; Z79.899 Other long term (current) drug therapy; Z79.4 Long term (current) use of insulin; Z83.3 Family history of diabetes mellitus
CPT/HCPCS: 36415; 74176; 80048; 80053; 80307; 81001; 82010; 82150; 82962; 83036; 85025; 94761; G0378; J0696; J1815; J1885; J3490

== ENCOUNTER 2020-02-14 08:03 | Inpatient (IN) | payer MEDICAID ==
[~2020-02-14] VITALS: Ht 172.7 cm; Wt 83.0 kg
[~2020-02-14 08:03] MED LIST changes: +CHOL20007 OR; +DULO20CA PO; +POLY33504 PO
[2020-02-14] MEDS ORDERED: SODIUM CHLORIDE 0.9% 1,000 ML IV ONE ×2 (08:10)
[2020-02-14] MEDS ORDERED: InsuLIN R (HUMAN) 100 UNITS in SODIUM CHL 0.9% 99 ML IV SCH (08:11)
[2020-02-14] MEDS ORDERED: DEXTROSE (50%) 50ML SYRG IV PRN ×2 (08:15→16:15)
[2020-02-14] MEDS ORDERED: PROMETHAZINE HCL 25 MG/ML 1ML IV ONE ×2 (08:45→16:00)
[2020-02-14 08:58] LABS: Basophils # (auto) 0.1 10 ^3/uL (0-0.2); Eosinophils # (auto) 0.1 10 ^3/uL (0-0.8); Eosinophils % (auto) 0.8 % (0.0-7.0); Hematocrit 43.9 % (41.0-53.0); Hemoglobin 14.9 g/dL (13.5-17.5); Lymphocytes # (auto) 1.5 10 ^3/uL (0.4-5.4); Lymphocytes % (auto) 21.5 % (10.0-50.0); Mean Corpuscular Hemoglobin 29.5 pg (28.0-32.0); Mean Corpuscular Hgb Conc. 33.9 g/dL (32.0-36.0); Mean Corpuscular Volume 87.1 fL (80.0-100.0); Monocytes # (auto) 0.2 10 ^3/uL (0-1.3); Neutrophils # (auto) 5.1 10 ^3/uL (1.6-8.6); Neutrophils % (auto) 73.7 % (37.0-80.0); Nucleated Red Blood Cells % 0.1 %; Platelet Count (auto) 456 10^3/uL (140-450); Red Blood Cells 5.04 10^6/uL (4.5-5.90); Red Cell Distribution Width 12.9 % (11.8-14.3)
[2020-02-14 09:15] LABS: Albumin 3.9 g/dL (3.4-5.0); Anion Gap 13 (5-15); Calcium 9.2 mg/dL (8.5-10.1); Carbon Dioxide 21 mmol/L (21-32); Chloride 100 mmol/L (98-107); Lipase 38 U/L (73-393); Potassium 4.1 mmol/L (3.5-5.1); Sodium 134 mmol/L (136-145)
[2020-02-14 09:17] LABS: Alanine Aminotransferase 31 U/L (16-61); Aspartate Aminotransferase 19 U/L (15-37); GFR African American 82 mL/min; GFR Non-African American 68 mL/min
[2020-02-14 09:21] LABS: Alkaline Phosphatase 96 U/L (45-117); Bilirubin, Total 0.5 mg/dL (0.2-1.0); Glucose 322 mg/dL (74-106); Magnesium 2.2 mg/dL (1.6-2.6); Total Protein 8.9 g/dL (6.4-8.2)
[2020-02-14] MEDS: ACCU-CHEK COMFORT CURVE STRIP VI SCH ×6 (09:28→20:06)
[2020-02-14 09:29] LABS: INR 1.16 (0.9-1.15); Partial Thromboplastin Time 25.4 sec (23.64-32.05)
[2020-02-14 09:49] LABS: Phosphorus 0.9 mg/dL (2.5-4.90)
[2020-02-14] MEDS: SODIUM CHLORIDE 0.9% 1,000 ML IV SCH ×2 (09:52→10:11)
[2020-02-14] MEDS ORDERED: SODIUM PHOSPHATES 20 MEQ in SODIUM CHL 0.9% 100 ML IV ONE (10:00)
[2020-02-14] MEDS ORDERED: ONDANSETRON HCL 4 MG/2 ML VIAL IV ONE (10:15)
[2020-02-14] MEDS ORDERED: MORPHINE SULFATE 4 MG/ML SYR/VIAL IV ONE (10:15)
[2020-02-14 10:29] LABS: BUN/Creatinine Ratio 17.8; Blood Urea Nitrogen 23 mg/dL (7-18)
[2020-02-14] MEDS ORDERED: METOCLOPRAMIDE HCL 5MG/ml INJ 2ml VIAL IV ONE (11:15)
[2020-02-14] MEDS ORDERED: NITROGLYCERIN 0.4 MG SL TAB SL PRN (11:15)
[2020-02-14] MEDS ORDERED: SODIUM CHLORIDE 0.9% 1,000 ML IV SCH ×3 (11:15→14:11)
[2020-02-14] MEDS ORDERED: MORPHINE SULF INJ 2 MG/ML SYRINGE 1ML IV PRN ×2 (11:15)
[2020-02-14] MEDS: HYDROmorphone HCL 2 MG/ML VL IV PRN ×2 (13:21→21:08)
[2020-02-14 15:19] LABS: BUN/Creatinine Ratio 22.5; Calcium 7.4 mg/dL (8.5-10.1); Potassium 3.8 mmol/L (3.5-5.1)
[2020-02-14] MEDS: ONDANSETRON HCL 4 MG/2 ML VIAL IV PRN ×2 (15:48→21:07)
[2020-02-14] MEDS ORDERED: SOD CHL 0.45% 1,000 ML IV SCH (16:00)
[2020-02-14] MEDS ORDERED: HYDROmorphone HCL 2 MG/ML VL IV ONE (16:00)
[2020-02-14] MEDS ORDERED: SUCRALFATE 1 GM/10 ML ORAL SUSP PO ONE (16:00)
[2020-02-14] MEDS: InsuLIN REG 1unit/0.01ml Soln (100units/ml) SC SCH (20:21)
[2020-02-14 22:00] VITALS: BP 138/81
[2020-02-14 22:17] VITALS: BP 138/81
[2020-02-15] MEDS: HYDROmorphone HCL 2 MG/ML VL IV PRN ×2 (03:10→09:00)
[2020-02-15] MEDS: ONDANSETRON HCL 4 MG/2 ML VIAL IV PRN ×2 (03:10→14:49)
[2020-02-15] MEDS: InsuLIN REG 1unit/0.01ml Soln (100units/ml) SC SCH ×4 (04:00→12:00)
[2020-02-15] MEDS: ACCU-CHEK COMFORT CURVE STRIP VI SCH ×4 (04:00→12:00)
[2020-02-15 05:00] VITALS: BP 150/79
[2020-02-15 06:24] LABS: Basophils # (auto) 0 10 ^3/uL (0-0.2); Basophils % (auto) 0.1 % (0.0-2.0); Eosinophils # (auto) 0 10 ^3/uL (0-0.8); Hematocrit 37.7 % (41.0-53.0); Hemoglobin 12.4 g/dL (13.5-17.5); Lymphocytes # (auto) 1.3 10 ^3/uL (0.4-5.4); Lymphocytes % (auto) 7.1 % (10.0-50.0); Mean Corpuscular Hgb Conc. 32.8 g/dL (32.0-36.0); Mean Corpuscular Volume 88.6 fL (80.0-100.0); Monocytes # (auto) 0.5 10 ^3/uL (0-1.3); Monocytes % (auto) 3.1 % (0.0-12.0); Neutrophils # (auto) 16.1 10 ^3/uL (1.6-8.6); Neutrophils % (auto) 89.7 % (37.0-80.0); Platelet Count (auto) 385 10^3/uL (140-450); Red Blood Cells 4.26 10^6/uL (4.5-5.90); Red Cell Distribution Width 13.3 % (11.8-14.3); White Blood Cell 17.9 10^3/uL (4.4-10.8)
[2020-02-15 06:41] LABS: Albumin 3.6 g/dL (3.4-5.0); Calcium 8.5 mg/dL (8.5-10.1); Magnesium 2.1 mg/dL (1.6-2.6)
[2020-02-15 06:45] LABS: Bilirubin, Total 0.3 mg/dL (0.2-1.0); Total Protein 7.7 g/dL (6.4-8.2)
[2020-02-15 08:00] VITALS: BP 119/79
[2020-02-15 08:39] VITALS: BP 119/79
[2020-02-15] MEDS ORDERED: SODIUM BICARBONATE 50ML VIAL 50 ML in SOD CHL 0.45% 1,000 ML IV ONE (09:00)
[2020-02-15] MEDS ORDERED: VANCOMYCIN PER PHARMACY 0 MG IV SCH (09:00)
[2020-02-15] MEDS ORDERED: cefTRIAXone 1GM/50ML D5W 50 ML IV SCH (09:00)
[2020-02-15] MEDS ORDERED: VANCOMYCIN 1GM/250ML 250 ML IV SCH (10:00)
[2020-02-15] MEDS ORDERED: PANTOPRAZOLE 40 MG/10 ML VIAL INJ IV SCH (10:00)
[2020-02-15 12:16] VITALS: BP 127/73
[2020-02-15] MEDS ORDERED: SUCRALFATE 1 GM TAB PO SCH (14:15)
[2020-02-15] MEDS ORDERED: OXYCODONE W/ ACETAMINOPHEN 5/325MG TABLET PO PRN (14:15)
[2020-02-15] MEDS ORDERED: INSULIN LANTUS (GLARGINE) 1 /0.01ml (100units/ml) SC ONE (15:45)
[2020-02-15 16:29] VITALS: BP 105/58
[2020-02-15 16:33] LABS: BUN/Creatinine Ratio 15.2; Calcium 8.5 mg/dL (8.5-10.1); Potassium 3.8 mmol/L (3.5-5.1)
[2020-02-15] MEDS ORDERED: INSULIN LANTUS (GLARGINE) 1 /0.01ml (100units/ml) SC SCH (22:00)
== END 2020-02-15 17:10 | disposition left against medical advice (07) | DRG 420 ==
LOC: ER 08:03 → EDBD 08:03 → TELE 08:04 → TELE-EAST 22:00
PROVIDERS: ADMIT Nurse Practitioner Acute Care; ATTEND Internal Medicine Nephrology
PROC: 02HV33Z Insertion of Infusion Device into Superior Vena Cava, Percutaneous Approach (ICD-10-PCS; principal; 2020-02-14)
DX: E11.10 Type 2 diabetes mellitus with ketoacidosis without coma (principal); R65.11 Systemic inflammatory response syndrome (SIRS) of non-infectious origin with acute organ dysfunction; E86.0 Dehydration; K31.84 Gastroparesis; F41.9 Anxiety disorder, unspecified; F12.10 Cannabis abuse, uncomplicated; F32.9 Major depressive disorder, single episode, unspecified; Z53.29 Procedure and treatment not carried out because of patient's decision for other reasons; F17.210 Nicotine dependence, cigarettes, uncomplicated; Z79.899 Other long term (current) drug therapy; Z83.3 Family history of diabetes mellitus; Z79.4 Long term (current) use of insulin
CPT/HCPCS: 36415; 36556; 36600; 71045; 74176; 80048; 80053; 82010; 82805; 82962; 83036; 83690; 83735; 83930; 84100; 84484; 85025; 85610; 85730; 87040; 96361; 96365; 96375; 96376; 99291; C9113; G0378; J0696; J1815; J2405

== ENCOUNTER 2020-06-29 10:50 | Inpatient (IN) | payer MEDICAID ==
[~2020-06-29] VITALS: Ht 190.5 cm; Wt 75.0 kg
[2020-06-29] MEDS ORDERED: SODIUM CHLORIDE 0.9% 1,000 ML IV ONE ×2 (12:15)
[2020-06-29] MEDS ORDERED: MORPHINE SULFATE 4 MG/ML SYR/VIAL IV ONE (13:15)
[2020-06-29] MEDS ORDERED: ONDANSETRON HCL 4 MG/2 ML VIAL IV ONE (13:15)
[2020-06-29] MEDS ORDERED: PIPERACILLIN-TAZOB 3.375GM 100 ML IV ONE (13:15)
[2020-06-29 13:22] LABS: Basophils # (auto) 0 10 ^3/uL (0-0.2); Basophils % (auto) 0.6 % (0.0-2.0); Eosinophils # (auto) 0.2 10 ^3/uL (0-0.8); Eosinophils % (auto) 2.6 % (0.0-7.0); Hematocrit 36.4 % (41.0-53.0); Hemoglobin 12.4 g/dL (13.5-17.5); Lymphocytes # (auto) 1.5 10 ^3/uL (0.4-5.4); Lymphocytes % (auto) 18.2 % (10.0-50.0); Mean Corpuscular Hemoglobin 29.1 pg (28.0-32.0); Mean Corpuscular Volume 85.7 fL (80.0-100.0); Monocytes # (auto) 0.5 10 ^3/uL (0-1.3); Monocytes % (auto) 5.5 % (0.0-12.0); Neutrophils # (auto) 6.1 10 ^3/uL (1.6-8.6); Neutrophils % (auto) 73.1 % (37.0-80.0); Nucleated Red Blood Cells % 0.4 %; Platelet Count (auto) 555 10^3/uL (140-450); Red Blood Cells 4.25 10^6/uL (4.5-5.90); Red Cell Distribution Width 13.3 % (11.8-14.3); White Blood Cell 8.3 10^3/uL (4.4-10.8)
[2020-06-29 13:39] LABS: Chloride 96 mmol/L (98-107); Sodium 130 mmol/L (136-145)
[2020-06-29 13:48] LABS: Alanine Aminotransferase 19 U/L (16-61); Albumin 3.5 g/dL (3.4-5.0); Alkaline Phosphatase 116 U/L (45-117); Anion Gap 8 (5-15); Aspartate Aminotransferase 20 U/L (15-37); BUN/Creatinine Ratio 12.4; Bilirubin, Total 0.3 mg/dL (0.2-1.0); Blood Urea Nitrogen 16 mg/dL (7-18); Calcium 9.4 mg/dL (8.5-10.1); Carbon Dioxide 26 mmol/L (21-32); GFR African American 82 mL/min; GFR Non-African American 68 mL/min; Glucose 284 mg/dL (74-106); INR 0.94 (0.9-1.15); Partial Thromboplastin Time 29.9 sec (23.0-31.2); Total Protein 8.7 g/dL (6.4-8.2)
[2020-06-29 13:58] LABS: Potassium 4.3 mmol/L (3.5-5.1)
[2020-06-29] MEDS ORDERED: IOHEXOL 300 MG/ML 100ML BOTTLE IJ ONE (14:06)
[2020-06-29] MEDS ORDERED: DEXTROSE (50%) 50ML SYRG IV PRN (14:45)
[2020-06-29] MEDS ORDERED: MORPHINE SULF INJ 2 MG/ML SYRINGE 1ML IV PRN (14:45)
[2020-06-29] MEDS ORDERED: ACETAMINOPHEN 325 MG TAB PO PRN (14:45)
[2020-06-29] MEDS ORDERED: VANCOMYCIN PER PHARMACY 0 MG IV SCH (14:45)
[2020-06-29] MEDS ORDERED: HYDROcodone-ACET 5/325MG TAB PO PRN (14:45)
[2020-06-29] MEDS ORDERED: HYDROmorphone HCL 2 MG/ML VL IV PRN (14:45)
[2020-06-29] MEDS ORDERED: NITROGLYCERIN 0.4 MG SL TAB SL PRN (14:45)
[2020-06-29] MEDS ORDERED: INSU1INJ19 SC (16:38)
[2020-06-29] MEDS ORDERED: METO-281 PO (16:38)
[2020-06-29] MEDS ORDERED: GABA300C10 PO (16:38)
--- NOTE | 2020-06-29 16:45 | NUR ---
WOUND PHOTO TAKEN ON RIGHT GREAT TOE AND LEFT 2ND TOE.
[2020-06-29 16:51] VITALS: BP 111/70
[2020-06-29] MEDS: VANCOMYCIN 1GM/250ML 250 ML IV SCH (17:26)
[2020-06-29] MEDS ORDERED: AMPH20TA20 PO (17:27)
[2020-06-29] MEDS: ACCU-CHEK COMFORT CURVE STRIP VI SCH ×2 (17:32→21:51)
[2020-06-29] MEDS: InsuLIN REG 1unit/0.01ml Soln (100units/ml) SC SCH ×2 (17:32→21:51)
--- NOTE | 2020-06-29 19:30 | NUR ---
Opening Shift Note Assumed care of patient, awake and alert. No S/S of distress/SOB or pain. Instructed on POC and to call for assist PRN, will continue to monitor for changes Q1hr and PRN.
[2020-06-29] MEDS: HYDROmorphone HCL 2 MG/ML VL IV PRN (19:33)
[2020-06-29 20:41] LABS: Urine Bacteria NONE SEEN /hpf (None Seen); Urine Blood Negative /uL (Negative); Urine WBC 1 /hpf (0 - 3)
[2020-06-29 20:45] LABS: Urine Specific Gravity 1.001 (1.001-1.035)
[2020-06-29] MEDS: HEPARIN SODIUM (PORCINE) 5000 UNITS/ML 1ML VIAL SC SCH (21:50)
[2020-06-29] MEDS ORDERED: HEPARIN SODIUM (PORCINE) 5000 UNITS/ML 1ML VIAL SC SCH (22:00)
[2020-06-29] MEDS ORDERED: HEPARIN SODIUM (PORCINE) 5000 UNITS/ML 1ML VIAL IV SCH (22:00)
[2020-06-29 22:10] VITALS: BP 94/57
[2020-06-29] MEDS ORDERED: ZOLPIDEM TARTRATE 5 MG TAB PO PRN (23:00)
[2020-06-29] MEDS: PIPERACILLIN-TAZOB 3.375GM 100 ML IV SCH (23:01)
[2020-06-30] MEDS: VANCOMYCIN 1GM/250ML 250 ML IV SCH (02:57)
[2020-06-30] MEDS: HYDROmorphone HCL 2 MG/ML VL IV PRN ×3 (02:58→10:50)
--- NOTE | 2020-06-30 03:30 | NUR ---
Patient complained that he checked his blood sugar and it was low so he requested for some juice and jello. Food provided to the patient. Acucheck resulted to 175. Will recheck in the morning for insulin coverage. Care continued.
[2020-06-30 05:00] VITALS: BP 104/66
[2020-06-30] MEDS: PIPERACILLIN-TAZOB 3.375GM 100 ML IV SCH ×2 (06:28→12:00)
[2020-06-30] MEDS: ACCU-CHEK COMFORT CURVE STRIP VI SCH ×2 (06:28→12:07)
--- NOTE | 2020-06-30 06:30 | NUR ---
Patient's accucheck result is 314. Equivalent sliding scale is 8 units regular insulin. Patient refused insulin and said he will use his own insulin. Patient informed about hospital policy that patient's are not allowed to self medicate. Patient still used his own insulin anyway. At this time, patient is about to be given his IV pain medication. Patient started to get upset when I was asking when he started to medicate himself. Patient started yelling and cursing. I left the room and came back with a Emanuel male RN for safety reasons. Emanuel witnessed patient's hostility. Pain medication given as per prn order by . Care continued.
[2020-06-30] MEDS: InsuLIN REG 1unit/0.01ml Soln (100units/ml) SC SCH ×3 (06:51→11:30)
--- NOTE | 2020-06-30 07:30 | NUR ---
Dr. Tomer selby, left a message regarding patient refusing insulin sliding scale and using his own medication. Report given to DAI Rodriguez.
--- NOTE | 2020-06-30 07:30 | NUR ---
Opening Shift Note Assuming care of patient at this time. Patient is awake and alert. Patient denies pain. Patient shows no signs or symptoms of distress or shortness of breath. Bed is locked and lowered with side rails up x2. Instructed patient on the plan of care for today and to call for assistance as needed.
[2020-06-30 08:43] VITALS: BP 119/63
[2020-06-30] MEDS ORDERED: OXYCODONE W/ ACETAMINOPHEN 5/325MG TABLET PO PRN (09:45)
[2020-06-30 09:46] LABS: Calcium 9.2 mg/dL (8.5-10.1); Potassium 3.9 mmol/L (3.5-5.1)
[2020-06-30 09:49] LABS: BUN/Creatinine Ratio 8.9; Magnesium 2.4 mg/dL (1.6-2.6)
[2020-06-30] MEDS ORDERED: PANTOPRAZOLE 40 MG TAB PO SCH (10:00)
[2020-06-30] MEDS ORDERED: INSULIN LANTUS (GLARGINE) 1 /0.01ml (100units/ml) SC SCH (10:00)
[2020-06-30] MEDS ORDERED: INSU1INJ19 SC (10:01)
[2020-06-30] MEDS: HEPARIN SODIUM (PORCINE) 5000 UNITS/ML 1ML VIAL SC SCH (10:38)
--- NOTE | 2020-06-30 11:00 | NUR ---
WOUND CARE NOTE: IN TO SEE PATIENT AT THIS TIME PER WOUND CARE CONSULT REQUEST . PATIENT WAS ADMITTED TO [facility] WITH DIAGNOSIS OF CELLULITIS, RIGHT FOOT. PATIENT HAS HISTORY OF TYPE ONE DIABETES FOR 5 + YEARS. PATIENT RECENTLY SEEN BY DR. VILLELA, WHO HAS ORDERED FOR VASCULAR STUDIES OF PATIENT'S RLE. BEDSIDE NURSE RECENTLY COLLECTED WOUND CULTURE TO RIGHT, PLANTAR # 1 TOE, SENT OFF TO LAB FOR PROCESSING. WOUND PHOTOS WERE TAKEN AT TIME OF ADMIT, BY BEDSIDE NURSE FOR REFERENCE. PATIENT HAS CALLOUSED DFU ULCERATIONS TO BILATERAL # 1 TOES. PATIENT'S RIGHT DORSAL # 1 TOE IS EDEMATOUS, ERYTHEMIC, WARM TO THE TOUCH. PATIENT NOTICED SWELLING OVER THE LAST WEEK. FUNGAL TOENAIL NOTED. PLANTAR DFU, CALLOUSED, DRAINS PERIODICALLY. CURRENTLY WOUND APPEARS CLOSED. LEFT OPEN TO AIR. NO OTHER SKIN INTEGRITY ISSUES NOTED AT THIS TIME. RECOMMEND: PODIATRY CONSULT(FOLLOWING), PRN DRESSING CHANGE TO RIGHT # 1 TOE, IF WOUND OPENS/DRAINS; SKIN/WOUND CARE PLAN. WILL DEFER ALL OTHER WOUND RECOMMENDATIONS TO DR. VILLELA FOR HIS RIGHT # 1 TOE. WOUND CARE TEAM WILL CONTINUE TO MONITOR IF DR. VILLELA REQUESTS. Addendum: 06/30/20 at 1320 by Snehal Holloway RN Amended: Links added.
--- NOTE | 2020-06-30 11:05 | NUR ---
Wound Consult civil litigation attorney at bedside. Patient wounds should be left open to air. Awaiting podiatry consult.
--- NOTE | 2020-06-30 11:10 | NUR ---
Wound Culture Wound Culture sent to lab at this time.
[2020-06-30] MEDS ORDERED: SUCRALFATE 1 GM/10 ML ORAL SUSP PO SCH (11:30)
--- NOTE | 2020-06-30 12:00 | NUR ---
Podiatry Consult Dr. Mike at bedside discussing with patient and this RN plan of care. Patient needs to have an amputation of greater right toe. Patient became upset upon hearing this news. When asked if he has any questions, patient does not respond. Dr. Mike attempts to speak with patient but patient becomes increasingly upset. Patient states, "I've seen you before and you were an asshole." Dr. Mike informed patient that he can get a second opinion. Upon leaving room, Dr. Mike tells patient to have a nice day to which patient responded, "FUCK YOU!" Patient calls this RN to room afterward and states he is leaving. Informed patient that we can have another dairy feed mixing operator see him, but patient states, "I'm leaving." Notified patient of risks, including . Dr. William burks.
--- NOTE | 2020-06-30 12:05 | NUR ---
AMA Note MANI SURESH states they want to leave the hospital Against Medical Advice (AMA). Patient encouraged to stay for further treatment/stabilization. MD William notified of patient's wishes. Patient advised of the risks and benefits of leaving AMA. Patient verbalized understanding. Patient encouraged to return to the ER if symptoms do not improve or worsen.
[2020-06-30 12:46] VITALS: BP 102/64
--- NOTE | 2020-07-01 10:48 | NUR ---
ss consult Per ss consult arrange home health for wound care and IV ABX. Patient left the hospital AMA 06/30/2020. Addendum: 07/01/20 at 1049 by Joann COLLADO Amended: Links added.
== END 2020-06-30 12:05 | disposition left against medical advice (07) | DRG 344 ==
LOC: ER 10:50 → INTOOBSV 10:51 → OVERFLOW 10:51 → OBSVTOIN 10:51 → WEST WING 16:22
PROVIDERS: ADMIT Internal Medicine; ATTEND Internal Medicine
DX: E11.69 Type 2 diabetes mellitus with other specified complication (principal); M86.8X7 Other osteomyelitis, ankle and foot; L03.031 Cellulitis of right toe; F17.210 Nicotine dependence, cigarettes, uncomplicated; F12.90 Cannabis use, unspecified, uncomplicated; L97.525 Non-pressure chronic ulcer of other part of left foot with muscle involvement without evidence of necrosis; E11.621 Type 2 diabetes mellitus with foot ulcer; F32.9 Major depressive disorder, single episode, unspecified; F41.9 Anxiety disorder, unspecified; Z79.4 Long term (current) use of insulin; E11.42 Type 2 diabetes mellitus with diabetic polyneuropathy
CPT/HCPCS: 36415; 71045; 73700; 73701; 80048; 80053; 81001; 82962; 83605; 83735; 84484; 85025; 85610; 85730; 87040; 87077; 87186; 87205; 96361; 96365; 96366; 96367; 96372; 96375; 96376; G0378; J1815; J2405; J2543

== ENCOUNTER 2020-12-04 09:53 | Inpatient (IN) | payer MEDICAID ==
[~2020-12-04] VITALS: Ht 188 cm; Wt 73.3 kg
[~2020-12-04 09:53] MED LIST changes: +AMPH20TA20 PO; -CHOL20007 OR; -DULO20CA PO; -INSLANTI SC; +INSU1INJ19 SC; -POLY33504 PO
[2020-12-04] MEDS ORDERED: INSULIN LANTUS (GLARGINE) 1 /0.01ml (100units/ml) SC ONE ×2 (10:15→18:30)
[2020-12-04] MEDS ORDERED: InsuLIN R (HUMAN) 100 UNITS in SODIUM CHL 0.9% 99 ML IV SCH (10:15)
[2020-12-04] MEDS ORDERED: DEXTROSE (50%) 50ML SYRG IV PRN ×2 (10:15→21:30)
[2020-12-04] MEDS: SODIUM CHLORIDE 0.9% 1,000 ML IV SCH ×4 (10:24→21:10)
[2020-12-04 10:41] LABS: Basophils # (auto) 0.1 10 ^3/uL (0-0.2); Basophils % (auto) 0.6 % (0.0-2.0); Eosinophils # (auto) 0 10 ^3/uL (0-0.8); Eosinophils % (auto) 0.3 % (0.0-7.0); Hematocrit 39.6 % (41.0-53.0); Hemoglobin 13.5 g/dL (13.5-17.5); Lymphocytes # (auto) 1.1 10 ^3/uL (0.4-5.4); Lymphocytes % (auto) 12.6 % (10.0-50.0); Mean Corpuscular Hemoglobin 30.7 pg (28.0-32.0); Mean Corpuscular Hgb Conc. 34.2 g/dL (32.0-36.0); Mean Corpuscular Volume 89.8 fL (80.0-100.0); Monocytes # (auto) 0.2 10 ^3/uL (0-1.3); Monocytes % (auto) 2.5 % (0.0-12.0); Neutrophils # (auto) 7.6 10 ^3/uL (1.6-8.6); Platelet Count (auto) 355 10^3/uL (140-450); Red Blood Cells 4.41 10^6/uL (4.5-5.90); Red Cell Distribution Width 14.7 % (11.8-14.3); White Blood Cell 9.1 10^3/uL (4.4-10.8)
[2020-12-04 10:45] LABS: Magnesium 2.2 mg/dL (1.6-2.6); Phosphorus 2.4 mg/dL (2.5-4.90); Potassium 4.4 mmol/L (3.5-5.1)
[2020-12-04] MEDS: ACCU-CHEK COMFORT CURVE STRIP VI SCH ×8 (10:46→21:08)
[2020-12-04 10:47] LABS: BUN/Creatinine Ratio 19.4
[2020-12-04] MEDS ORDERED: ONDANSETRON HCL 4 MG/2 ML VIAL IV ONE (11:15)
[2020-12-04] MEDS ORDERED: HYDROcodone-ACET 5/325MG TAB PO PRN (12:00)
[2020-12-04] MEDS ORDERED: NITROGLYCERIN 0.4 MG SL TAB SL PRN (12:00)
[2020-12-04] MEDS ORDERED: MORPHINE SULF INJ 2 MG/ML SYRINGE 1ML IV PRN ×2 (12:00)
[2020-12-04 13:18] LABS: Urine Bacteria NONE SEEN /hpf (None Seen); Urine Blood Negative /uL (Negative); Urine Specific Gravity 1.024 (1.001-1.035); Urine WBC <1 /hpf (0 - 3)
[2020-12-04] MEDS ORDERED: SODIUM CHLORIDE 0.9% 1,000 ML IV SCH (14:15)
[2020-12-04] MEDS ORDERED: POLYETHYLENE GLYCOL 17 GM PWDR PO ONE (14:30)
[2020-12-04] MEDS ORDERED: D5W/SOD CHLO 0.9% 1,000 ML IV SCH (15:00)
[2020-12-04] MEDS: ONDANSETRON HCL 4 MG/2 ML VIAL IV PRN ×4 (16:31→23:32)
[2020-12-04 16:57] LABS: BUN/Creatinine Ratio 23.5; Calcium 8.6 mg/dL (8.5-10.1); Potassium 4.1 mmol/L (3.5-5.1)
[2020-12-04] MEDS: MORPHINE SULF INJ 2 MG/ML SYRINGE 1ML IV PRN ×2 (19:50→23:32)
[2020-12-04] MEDS: DOCUSATE SOD 100 MG CAP PO SCH (22:00)
[2020-12-04] MEDS: CALCIUM CARB 500 MG CHEW TAB PO PRN (23:32)
[2020-12-04 23:49] LABS: BUN/Creatinine Ratio 21.6; Calcium 8.8 mg/dL (8.5-10.1); Potassium 4.1 mmol/L (3.5-5.1)
[2020-12-05] MEDS ORDERED: PANTOPRAZOLE 40 MG TAB PO ONE
[2020-12-05] MEDS: HYDROcodone-ACET 5/325MG TAB PO PRN ×2 (02:33→06:58)
[2020-12-05] MEDS: CALCIUM CARB 500 MG CHEW TAB PO PRN (02:34)
[2020-12-05] MEDS: ONDANSETRON HCL 4 MG/2 ML VIAL IV PRN ×3 (03:00→11:24)
[2020-12-05] MEDS: ACCU-CHEK COMFORT CURVE STRIP VI SCH ×5 (03:46→16:00)
[2020-12-05] MEDS: InsuLIN REG 1unit/0.01ml Soln (100units/ml) SC SCH ×5 (03:46→16:00)
[2020-12-05] MEDS: MORPHINE SULF INJ 2 MG/ML SYRINGE 1ML IV PRN ×2 (04:02→10:26)
[2020-12-05 04:46] VITALS: BP 135/73
[2020-12-05 04:48] VITALS: BP 135/73
[2020-12-05] MEDS ORDERED: INSULIN LANTUS (GLARGINE) 1 /0.01ml (100units/ml) SC SCH (10:00)
[2020-12-05] MEDS ORDERED: PANTOPRAZOLE 40 MG TAB PO SCH (10:00)
[2020-12-05] MEDS: DOCUSATE SOD 100 MG CAP PO SCH (10:24)
[2020-12-05 12:32] LABS: BUN/Creatinine Ratio 19.8; Calcium 8.7 mg/dL (8.5-10.1); Potassium 3.5 mmol/L (3.5-5.1)
[2020-12-05 12:40] VITALS: BP 131/72
[2020-12-05] MEDS ORDERED: INSU100I43 SC (14:54)
[2020-12-05] MEDS ORDERED: BLOO-200 XX (14:54)
[2020-12-05] MEDS ORDERED: INSU-829 XX (14:54)
[2020-12-05] MEDS ORDERED: INSU1INJ19 SC (14:54)
[2020-12-05] MEDS ORDERED: DOCU100C10 PO (14:55)
[2020-12-05] MEDS ORDERED: METOCLOPRAMIDE HCL 10 MG TAB PO ONE (15:15)
== END 2020-12-05 17:39 | disposition home health service (06) | DRG 420 ==
LOC: EDBD 09:53 → ER 09:53 → TELE 09:54 → WEST WING 12-05 03:08
PROVIDERS: ADMIT Internal Medicine; ATTEND Internal Medicine
DX: E10.10 Type 1 diabetes mellitus with ketoacidosis without coma (principal); K31.84 Gastroparesis; I10 Essential (primary) hypertension; F17.210 Nicotine dependence, cigarettes, uncomplicated; F41.9 Anxiety disorder, unspecified; E10.43 Type 1 diabetes mellitus with diabetic autonomic (poly)neuropathy; F32.9 Major depressive disorder, single episode, unspecified; Z20.822 Contact with and (suspected) exposure to COVID-19; F90.9 Attention-deficit hyperactivity disorder, unspecified type; K21.9 Gastro-esophageal reflux disease without esophagitis; Z83.3 Family history of diabetes mellitus; Z91.19 Patient's noncompliance with other medical treatment and regimen
CPT/HCPCS: 36415; 36600; 71045; 74176; 80048; 81001; 82010; 82805; 82962; 83735; 83930; 84100; 85025; 87081; 87426; 93005; 96361; 96365; 96366; 96372; 96375; 96376; 99291; G0378; J1815; J2405

== ENCOUNTER 2021-06-21 09:16 | Emergency (ER) | payer MEDICAID ==
[~2021-06-21] VITALS: Ht 193 cm; Wt 81.6 kg
[~2021-06-21 09:16] MED LIST changes: +AMPH20TA2 PO; -AMPH20TA20 PO; +BLOO-200 XX; +DOCU100C10 PO; -INSLISPI SC; +INSU-829 XX; +INSU100I43 SC
[2021-06-21] MEDS: SODIUM CHLORIDE 0.9% 1,000 ML IV SCH ×2 (09:30→11:30)
[2021-06-21] MEDS ORDERED: InsuLIN R (HUMAN) 100 UNITS in SODIUM CHL 0.9% 99 ML IV SCH (09:30)
[2021-06-21] MEDS ORDERED: DEXTROSE (50%) 50ML SYRG IV PRN (09:30)
[2021-06-21] MEDS ORDERED: INSULIN LANTUS (GLARGINE) 1 /0.01ml (100units/ml) SC ONE (09:30)
[2021-06-21] MEDS ORDERED: SODIUM CHLORIDE 0.9% 1,000 ML IVB ONE (09:45)
[2021-06-21] MEDS ORDERED: SODIUM CHLORIDE 0.9% 1,000 ML IV ONE (09:45)
[2021-06-21 10:27] LABS: Basophils # (auto) 0.1 10 ^3/uL (0-0.2); Basophils % (auto) 0.8 % (0.0-2.0); Eosinophils # (auto) 0 10 ^3/uL (0-0.8); Eosinophils % (auto) 0.2 % (0.0-7.0); Hemoglobin 15.3 g/dL (13.5-17.5); Lymphocytes # (auto) 1.2 10 ^3/uL (0.4-5.4); Lymphocytes % (auto) 15.9 % (10.0-50.0); Mean Corpuscular Hemoglobin 30.8 pg (28.0-32.0); Mean Corpuscular Volume 90.4 fL (80.0-100.0); Monocytes # (auto) 0.3 10 ^3/uL (0-1.3); Monocytes % (auto) 3.6 % (0.0-12.0); Neutrophils # (auto) 5.9 10 ^3/uL (1.6-8.6); Neutrophils % (auto) 79.5 % (37.0-80.0); Nucleated Red Blood Cells % 0.1 %; Red Blood Cells 4.98 10^6/uL (4.5-5.90); Red Cell Distribution Width 13.6 % (11.8-14.3); White Blood Cell 7.4 10^3/uL (4.4-10.8)
[2021-06-21] MEDS: ACCU-CHEK COMFORT CURVE STRIP VI SCH ×3 (10:30→13:45)
[2021-06-21 10:34] LABS: BUN/Creatinine Ratio 17.3; Calcium 9.4 mg/dL (8.5-10.1); Magnesium 2.6 mg/dL (1.6-2.6); Phosphorus 3.4 mg/dL (2.5-4.90); Potassium 4.3 mmol/L (3.5-5.1)
[2021-06-21 10:37] LABS: Lipase 46 U/L (73-393)
[2021-06-21] MEDS ORDERED: InsuLIN REG 1unit/0.01ml Soln (100units/ml) IV ONE ×2 (10:45→12:15)
[2021-06-21] MEDS ORDERED: ONDANSETRON HCL 4 MG/2 ML VIAL IV ONE (11:45)
[2021-06-21] MEDS ORDERED: ONDANSETRON HCL 4 MG/2 ML VIAL ONE (12:04)
[2021-06-21] MEDS ORDERED: SODIUM CHLORIDE 0.9% 1,000 ML IV SCH ×2 (13:30→15:30)
[2021-06-21] MEDS ORDERED: MORPHINE SULFATE 4 MG/ML SYR/VIAL IV ONE (14:00)
[2021-06-21 14:21] VITALS: BP 143/93
[2021-06-22] MEDS ORDERED: INSULIN LANTUS (GLARGINE) 1 /0.01ml (100units/ml) SC SCH (10:00)
== END 2021-06-21 15:59 | disposition home or self-care (01) ==
LOC: ER 09:16
DX: E11.65 Type 2 diabetes mellitus with hyperglycemia (principal); R10.84 Generalized abdominal pain; R11.2 Nausea with vomiting, unspecified; F17.210 Nicotine dependence, cigarettes, uncomplicated; Z79.4 Long term (current) use of insulin; Z79.899 Other long term (current) drug therapy
CPT/HCPCS: 36415; 36600; 71045; 74176; 80048; 82010; 82805; 82962; 83690; 83735; 83930; 84100; 84484; 85025; 96361; 96374; 96375; 96376; 99285; J1815; J2270; J2405; J7030

== ENCOUNTER → 2024-01-15 | Outpatient (CLI) | payer MEDICAID ==
[~2024-01-15] MED LIST changes: +DOCU-265 PO; -DOCU100C10 PO; +GABA-1250 PO; -GABA300C10 PO
== END | disposition home or self-care (01) ==
LOC: LAB 08:26
PROVIDERS: ATTEND Podiatrist
DX: E11.621 Type 2 diabetes mellitus with foot ulcer (principal)
CPT/HCPCS: 87077; 87186; 87205